=== PATIENT | female | born 1950 | race Caucasian/White ===

== ENCOUNTER 2017-04-12 10:25 | Inpatient (IN) ==
[2017-04-12] MEDS ORDERED: ALBUTEROL/IPRATROPIUM 2.5mg-0.5mg/3ml NEB AEROSOL ONE ×2 (10:37→12:02)
--- NOTE | 2017-04-12 10:37 | Emergency Department Report ---
SOB HPI - General Chief Complaint: Shortness of Breath/Dyspnea Stated Complaint: diff breathing/COPD Time Seen by Provider: 04/12/17 10:37 Source: patient, family Mode of arrival: ambulatory Limitations: no limitations - History of Present Illness Patient is a 67-year-old female presents to the emergency room for evaluation of shortness of air. Patient's had shortness of air for just over a month, did originally see her primary care doctor 03/05/17 was placed on prednisone and Levaquin at that time with minimal improvement. Patient normally uses 3 L of oxygen at night, has currently been using it around the clock. Patient does have a history of COPD/asthma, no history of CHF. Patient reports no weight gain, no increased swelling in her legs. Patient continuing to require 3 L of oxygen by nasal cannula, was told by her doctor that if she did not improve she should just go to the emergency department. Patient here for evaluation and treatment MD Complaint: shortness of breath Onset (ago): week(s) Context: occurred during exertion Severity: moderate Consistency/Duration: constant Relieving factors: oxygen, rest, bronchodilators Known history of: COPD, asthma Associated symptoms: cough Treatment prior to arrival: oxygen, bronchodilator - Related Data Home oxygen amount: 3 liters (at night, recently started using during the day) Home Medications Medication Instructions Recorded Confirmed Losartan/Hydrochlorothiazide 1 tab PO DAILY #0 tab 10/20/14 [Losartan-Hctz 100-25 mg Tab] Lovastatin 40 mg PO HS #0 tab 10/20/14 Metformin HCl 500 mg PO WB #0 tab 10/20/14 Metoprolol Tartrate 50 mg PO BIDWM #0 tab 10/20/14 Pioglitazone HCl/Metformin HCl 0.5 tab PO BID #0 tab 10/20/14 [Pioglitazone-Metformin 15-500] Theophylline Anhydrous 300 mg PO BID #0 10/20/14 (Theophylline) glipiZIDE [Glipizide] 1 tab PO DAILY #0 tab 10/20/14 Previous Rx's Medication Instructions Recorded Ciprofloxacin HCl 1 tab PO BID #10 tab 10/25/14 Furosemide 1 tab PO DAILY PRN #10 tab 10/25/14 Guaifenesin/Dextromethorphan 1 tab PO Q12HR 14 Days 10/25/14 [Mucinex Dm ER 600-30 mg Tablet] PredniSONE [Deltasone] 40 mg PO taper #13 tab 10/25/14 Allergies Allergy/AdvReac Type Severity Reaction Status Date / Time No Known Allergies Allergy Verified 04/12/17 10:46 Review of Systems Constitutional: Reports: weakness. Denies: fever, chills Eyes: Denies: eye discharge ENT: Denies: throat pain, dental pain Cardiovascular: Reports: dyspnea on exertion. Denies: chest pain, palpitations Respiratory: Reports: cough, wheezes Gastrointestinal: Denies: abdominal pain, nausea, vomiting Genitourinary: Denies: urgency, dysuria, frequency Musculoskeletal: Denies: back pain Neurological: Denies: headache Psychiatric: Denies: anxiety, depression Endocrine: Denies: fatigue, heat or cold intolerance PFSH Patient Stated Medical History Angina Yes Hypertension Yes Chronic Obstructive Pulmonary Yes Disease (COPD) Diabetes Mellitus Type 2 Yes Medical History Updates: Diabetes to 2. Hypertension. Coronary artery disease. Asthma. COPD Surgical History: . Hysterectomy Family History Updates: Cancer - Social History Smoking status: Never smoker Substance use type: does not use Alcohol intake frequency: does not drink Physical Exam - Limitations Limitations: no limitations - General General appearance: alert - Eye Eye exam: Present: PERRL - ENT ENT exam: Present: normal oropharynx - Neck Neck exam: Absent: trachea midline, tenderness - Chest Chest inspection: Present: normal inspection, symmetric chest wall rise - Respiratory Respiratory exam: Present: other (some bibasilar crackles). Absent: normal lung sounds bilaterally, respiratory distress, wheezes, stridor - Cardiovascular Cardiovascular exam: Present: regular rate, normal rhythm. Absent: bradycardia , tachycardia - Abdominal Exam Abdominal exam: Present: soft. Absent: distention, tenderness - Extremities Exam Extremities exam: Present: full ROM. Absent: tenderness - Back Exam Back exam: Present: full ROM - Skin Skin exam: Present: warm, dry - Neurological Exam Neurological exam: Present: alert, oriented X3 - Psychiatric Psychiatric exam: Present: normal affect, normal mood Course Vital Signs Respiratory Rate 20 04/12/17 10:35 Pulse Oximetry 95 04/12/17 10:35 Temperature 97.2 F 04/12/17 13:42 Pulse Rate 100 04/12/17 13:42 Respiratory Rate 16 04/12/17 13:50 Blood Pressure 143/74 H 04/12/17 13:42 Pulse Oximetry 91 06/26/17 13:42 Shortness of Breath/Dyspnea - [facility] Narrative Medical decision making narrative: Discussed with Dr. Jenkins, despite Solu-Medrol DuoNeb 2, patient continues to desaturate on ambulation into the 80s, patient is maintaining a low level 92% oxygen saturation on her normal 3 L. Will admit patient to the hospital he will evaluate - Differential Diagnosis Likely: acute exacerbation of chronic obstructive airways disease - Medical Records Attestation: I reviewed the patient's medical records. - Lab Data Attestation: I reviewed the patient's lab results. Result diagrams: 04/12/17 11:33 04/12/17 11:33 Lab Results 04/12/17 04/12/17 04/12/17 Range/Units 11:33 11:33 11:33 WBC 9.7 (4.5-11.0) T/MM3 RBC 4.23 (4.00-5.20) M/MM3 Hgb 12.3 (12-16) GM/DL Hct 39.6 (36-46) % MCV 93.6 (80-100) UM3 MCH 29.1 (26-34) UUG MCHC 31.1 (31-37) GM/DL RDW Std Deviation 49.4 (36.9-50.2) FL Plt Count 318 (130-400) T/MM3 MPV 10.4 (9.4-12.4) UM3 Immature Gran % (Auto) 0.3 (0.0-0.5) % Neut % (Auto) 75.7 H (33-66) % Lymph % (Auto) 12.8 L (23-45) % Garrard % (Auto) 8.6 (0-9.0) % Eos % (Auto) 2.2 (0-4) % Baso % (Auto) 0.4 (0-2) % Neut # 7.3 (1.8-7.7) T/MM3 Lymph # 1.2 (1-4.8) T/MM3 Garrard # 0.8 (0-0.8) T/MM3 Eos # 0.2 (0-0.5) T/MM3 Baso # 0.0 (0-0.2) T/MM3 Abs Immat Gran (auto) 0.03 (0.00-0.03) T/MM3 D-Dimer 208 (0-230) NG/ML Turbidity < 20 (0-20) Sodium 144 (134-144) MEQ/L Potassium 3.8 (3.6-5) MEQ/L Chloride 93 L (98-107) MEQ/L Carbon Dioxide 36 H (22-30) MEQ/L Anion Gap 15 (5-15) MEQ/L BUN 18.0 H (7-17) MG/DL Creatinine 0.6 L (0.7-1.2) MG/DL GFR Calculation 99 BUN/Creatinine Ratio 30 H (6-26) RATIO Glucose 188 H (65-110) MG/DL Calculated Osmolality 284 H (261-280) MOSM/KG Calcium 9.7 (8.4-10.2) MG/DL Total Bilirubin 0.40 (0.20-1.30) MG/DL Icterus Index < 2 (0-7) AST 16 (14-36) U/L ALT 37 (9-52) U/L Alkaline Phosphatase 58 (38-126) U/L Troponin I < 0.012 (0-0.12) ng/ml B-Natriuretic Peptide 95.9 (0-175) pg/mL Total Protein 7.3 (6.3-8.2) G/DL Albumin 4.3 (3.5-5.0) G/DL Globulin 3.0 (2.4-3.6) G/DL Albumin/Globulin Ratio 1.4 (1.1-2.2) RATIO Plasma Lactate 3.1 H (0.6-2.2) MMOL/L Procalcitonin NG/ML Specimen Hemolysis < 15 (0-25) // Range/Units 11:33 WBC (4.5-11.0) T/MM3 RBC (4.00-5.20) M/MM3 Hgb (12-16) GM/DL Hct (36-46) % MCV (80-100) UM3 MCH (26-34) UUG MCHC (31-37) GM/DL RDW Std Deviation (36.9-50.2) FL Plt Count (130-400) T/MM3 MPV (9.4-12.4) UM3 Immature Gran % (Auto) (0.0-0.5) % Neut % (Auto) (33-66) % Lymph % (Auto) (23-45) % Garrard % (Auto) (0-9.0) % Eos % (Auto) (0-4) % Baso % (Auto) (0-2) % Neut # (1.8-7.7) T/MM3 Lymph # (1-4.8) T/MM3 Garrard # (0-0.8) T/MM3 Eos # (0-0.5) T/MM3 Baso # (0-0.2) T/MM3 Abs Immat Gran (auto) (0.00-0.03) T/MM3 D-Dimer (0-230) NG/ML Turbidity (0-20) Sodium (134-144) MEQ/L Potassium (3.6-5) MEQ/L Chloride (98-107) MEQ/L Carbon Dioxide (22-30) MEQ/L Anion Gap (5-15) MEQ/L BUN (7-17) MG/DL Creatinine (0.7-1.2) MG/DL GFR Calculation BUN/Creatinine Ratio (6-26) RATIO Glucose (65-110) MG/DL Calculated Osmolality (261-280) MOSM/KG Calcium (8.4-10.2) MG/DL Total Bilirubin (0.20-1.30) MG/DL Icterus Index (0-7) AST (14-36) U/L ALT (9-52) U/L Alkaline Phosphatase (38-126) U/L Troponin I (0-0.12) ng/ml B-Natriuretic Peptide (0-175) pg/mL Total Protein (6.3-8.2) G/DL Albumin (3.5-5.0) G/DL Globulin (2.4-3.6) G/DL Albumin/Globulin Ratio (1.1-2.2) RATIO Plasma Lactate (0.6-2.2) MMOL/L Procalcitonin < 0.05 NG/ML Specimen Hemolysis (0-25) - Radiology Data Attestation: I reviewed the patient's radiology results. Chest x-ray: No acute cardiopulmonary findings Disposition Clinical Impression: Acute exacerbation of chronic obstructive airways disease Disposition: To [facility] [place] Acute Care Condition: Stable - Seen By: physician
[2017-04-12] MEDS ORDERED: METHYLPREDNISOLONE SOD SUCC 125mg/2ml INJECTION IM ONE (11:07)
[2017-04-12] MEDS: SALINE FLUSH 10ml SYRINGE IVF PRN ×2 (11:23→11:33)
--- NOTE | 2017-04-12 11:23 | XRay Report ---
Indication: cough shortness of breath PROCEDURE: XR chest 1V: Encounter: Initial Comparison: October 24, 2014 Findings: Emphysematous changes. Increased lung markings in the bases are likely chronic. No acute consolidative pneumonia, gross pleural effusion or pneumothorax. Heart size and mediastinal contours are stable. Pulmonary vascularity is within normal limits. Impression: No focal pneumonia. COPD. .
[2017-04-12] MEDS ORDERED: METHYLPREDNISOLONE SOD SUCC 125mg/2ml INJECTION IVP ONE (11:27)
[2017-04-12] MEDS ORDERED: LEVOFLOXACIN PB 750 MG/150 ML BAG IV SCH (12:00)
[2017-04-12] MEDS: NS 1,000 ML IV SCH (12:55)
--- NOTE | 2017-04-12 14:01 | History & Physical Report ---
<Leigha Polo - Last Filed: 04/12/17 15:56> History of Present Illness Date: 04/12/17 Chief complaint: difficulty breathing HPI: Started noticing some exertional SOA in late January - used oxygen temporarily during the day and after a short period of time she was able to take it off. She had been using oxygen only at night. Her dyspnea continued to worsen, but since mid-February she has been using 3L of oxygen [id number]. Unfortunately, she's continued to be limited in her ADLs/IADLs due to dyspnea, and now is terribly weak in general. She saw Dr. Coffman around 03/05/17 - he Rx Prednisone for 15 days and Levaquin x 10 days. Still, her SpO2 dropped with activity (walking 30 feet), even with 3L of oxygen in place. On 04/06/17 she was running in the 80s and on 04/07/17 she was running 70-80s. It took about 5-6 minutes for her oxygen sats to rise to 90%. She started noticing a little sternal burning with exertion. She has not had PND. Drove to [place] in mid-February (about a [address]). Occasional [id number] type of cough. Tends to have b/l swelling in her ankles but denies any worsening or unilateral edema. No fever, chills, congestion, sore throat, dizziness, abdominal pain, n/v/d/c, urinary changes, rashes. She does tend to bruise easily. She presented to [facility] [place] ED on 04/12/17. Labs showed normal CBC, normal chemistries; trop was negative; d-dimer was negative. EKG showed sinus. CXR was unremarkable for CHF or pneumonia. Saturations initially were 83% on 3L. She received DuoNeb and Solumedrol. O2 was increased to 4L. ED MD also gave Levaquin. She was admitted to observation status under the hospitalist service. Review of Systems All systems: reviewed and no additional remarkable complaints except as stated - Constitutional Constitutional: Present: headache(s) (resolved), weakness. Absent: fever(s), night sweats - EENMT Eyes: Absent: change in vision Nose: Absent: allergies Mouth/Throat: Absent: sore throat, changes in swallowing, painful swallowing - Cardiovascular Cardiovascular: Present: chest pain, edema. Absent: syncope, orthopnea - Respiratory Respiratory: Present: as per HPI - Gastrointestinal Gastrointestinal: Absent: abdominal pain, change in bowel habits, constipation, diarrhea, nausea, vomiting - Musculoskeletal Musculoskeletal: Present: muscle weakness - Neurological Neurological: Absent: confusion, frequent falls, headache(s) - Psychiatric Psychiatric: Present: anxiety (occasionally) - Hematologic/Lymphatic Hematologic/Lymphatic: Present: easy bruising (with ASA) - Allergic/Immunologic Allergic/Immunologic: Absent: seasonal rhinorrhea [facility] Medical History Updates: Diabetes type 2. Hypertension. Asthma. Severe COPD. Morbid obesity BMI 42.9 Surgical History: Tonsillectomy. Hysterectomy. Right leg ORIF 1976 Family History: Mother of kidney cancer, age 80 Father of a heart attack, age 60 No family history of DVT/PE or bleeding disorders. - Social History Smoking status: Former smoker (2-3 ppd since age 13) Quit date: 10/30/00 Substance use type: does not use Alcohol intake frequency: does not drink Household members: spouse Current occupational status: retired Current residence: Apartment/Private Home Medications Home Medications Medication Instructions Recorded Confirmed Type Losartan/Hydrochlorothiazide 1 tab PO DAILY #0 tab 10/20/14 04/12/17 History [Losartan-Hctz 100-25 mg Tab] Lovastatin 40 mg PO DAILY #0 tab 10/20/14 04/12/17 History Metformin HCl 1.5 tab PO BID #0 tab 10/20/14 04/12/17 History Metoprolol Tartrate 50 mg PO BIDWM #0 tab 10/20/14 04/12/17 History glipiZIDE [Glipizide] 1 tab PO DAILY #0 tab 10/20/14 04/12/17 History Albuterol Sulfate [Proair 90 mcg INH QID PRN 04/12/17 04/12/17 History Respiclick] Aspirin [Bianca Chewable Aspirin] 81 mg PO DAILY 04/12/17 04/12/17 History Calcium 600 + D [Caltrate + D] 1 tab PO DAILY 04/12/17 04/12/17 History Cinnamon Bark [Cinnamon] 500 mg PO DAILY 04/12/17 04/12/17 History Fluticasone/Salmeterol 250/50 1 puff INH BID 04/12/17 04/12/17 History [Advair Diskus] Multivitamin [One Daily 1 each PO DAILY 04/12/17 04/12/17 History Multivitamin] Pioglitazone HCl [Pioglitazone HCl] 0.5 tab PO BID 04/12/17 04/12/17 History Psyllium [Metamucil] 1 packet PO DAILY PRN 04/12/17 04/12/17 History Theophylline Anhydrous 300 mg PO DAILY 04/12/17 04/12/17 History Tiotropium Handihaler [Spiriva] 1 each INH DAILY 04/12/17 04/12/17 History Allergies Allergy/AdvReac Type Severity Reaction Status Date / Time No Known Allergies Allergy Verified 04/12/17 10:46 Exam Vital Signs: Temp Pulse Resp BP Pulse Ox 97.2 F 100 16 143/74 H 91 04/12/17 13:42 04/12/17 13:42 04/12/17 13:50 04/12/17 13:42 04/12/17 13:42 Height: 1.63 m Weight: 107.9 kg - Constitutional Present: no acute distress, well nourished, well developed, morbidly obese - Routine HEENT Exam Eye: Present: PERRL. Absent: conjunctival icterus, scleral injection ENT: Present: mucous membranes dry - Routine Neck Exam Present: supple. Absent: lymphadenopathy - Routine Respiratory Exam Present: decreased breath sounds, wheezes - Routine Cardiovascular Exam Present: RRR, S1, S2 - Routine Abdominal Exam Present: soft, normoactive bowel sounds, non distended, non tender - Routine Extremities Exam Present: edema (1+ b/l lower ext.), pulses intact - Routine Neurological Exam Present: alert, oriented X3, CN II-XII intact - Routine Psychiatric Exam Present: normal affect, normal thought process Results - Labs CBC & Chem 7: 04/12/17 11:33 04/12/17 11:33 - ECG Data Tracing #1 ECG initial impression date: 04/12/17 ECG normal with no acute: arrhythmias, ischemia, conduction abnormalities, chamber hypertrophy - Imaging and Cardiology CT scan - abdomen Status: image reviewed by me Additional comments: No acute CHF or infiltrates. No cardiomegaly. Assessment and Plan (1) Acute on chronic respiratory failure with hypoxemia Current visit: Yes Status: Acute (2) Atypical chest pain Current visit: Yes Status: Acute (3) Acute exacerbation of chronic obstructive airways disease Current visit: Yes Status: Acute DVT Prophylaxis: Lovenox GI Prophylaxis: Protonix Resuscitation Status: Full Code Assessment and Plan: Admit, observation status, under the hospitalist service. COPD exacerbation; acute on chronic hypoxia -Solu-Medrol IV in ED - start Prednisone 60 mg tomorrow am -Levaquin 750 mg daily -High-resolution CT chest ordered -D-dimer normal -DuoNeb QID; acapella -resume home meds once they are reconciled Atypical Chest Pain -start PPI -echocardiogram -tele -trop was negative -lipids checked 01/27/17: Chol 150; trig 134, HDL 47, LDL 76, VLDL 27. DM2 -last A1c was 6.1% on 01/27/17 -monitor sugars - SSI if needed -continue oral agents (once reconciled) Weight gain/weakness -check TSH Pt was seen and discussed with Dr. Jenkins. Hospital Course Summary Disclaimer: The visit summary below is not to be considered part of the above Progress Note. Hospital Course: 04/12/17 16:06 Admit, observation status, under the hospitalist service. COPD exacerbation; acute on chronic hypoxia -Solu-Medrol IV in ED - start Prednisone 60 mg tomorrow am -Levaquin 750 mg daily -High-resolution CT chest ordered -D-dimer normal -DuoNeb QID; acapella -resume home meds once they are reconciled Atypical Chest Pain -start PPI -echocardiogram -tele -trop was negative -lipids checked 01/27/17: Chol 150; trig 134, HDL 47, LDL 76, VLDL 27. DM2 -last A1c was 6.1% on 01/27/17 -monitor sugars - SSI if needed -continue oral agents (once reconciled) Weight gain/weakness -check TSH <Gianni Jenkins - Last Filed: 04/12/17 18:40> History of Present Illness Date: 04/12/17 [facility] Patient Stated Medical History Angina Yes Hypertension Yes Chronic Obstructive Pulmonary Yes Disease (COPD) Pneumonia Yes Diabetes Mellitus Type 2 Yes Exam Vital Signs: Temp Pulse Resp BP Pulse Ox 97.6 F 101 H 22 150/74 H 92 04/12/17 16:27 04/12/17 16:27 04/12/17 16:45 04/12/17 16:27 04/12/17 16:45 Height: 5 ft 4 in Weight: 107.9 kg Results - Labs CBC & Chem 7: 04/12/17 11:33 04/12/17 11:33 Assessment and Plan (1) Acute exacerbation of chronic obstructive airways disease Current visit: Yes Status: Acute (2) Acute on chronic respiratory failure with hypoxemia Current visit: Yes Status: Acute (3) Atypical chest pain Current visit: Yes Status: Acute Assessment and Plan: Pt seen and examined with Leigha, agree with above plan of care. Pt presents with acute SOB and desaturation, with increased O2 needs recently ( over a period of months) which is very concerning. She denies any H.O cardiac problems or SC, but reports having burning chest pain recently. Initial TnI is negative. Pt was taking a combination of Metformin and Pioglitazone as outpatient for her DM. She states a pill she gets for her lungs makes her nauseated. Pt is not sure how long she has been on Pioglitazone. CT chest (HRCT) "...................................................................... Comparison: Chest x-ray dated April 12, [address] chest dated October 20, 2014 Technique: Axial CT images were performed through the chest without intravenous contrast. Coronal and sagittal two-dimensional reformats. Automated Exposure Control and Iterative Reconstruction dose reducing techniques were utilized. Findings: Mild to moderate edema. There is significant air trapping consistent with small airways disease. Prior consolidation in the right middle lobe is no longer identified. There is chronic pleural abnormality in the right lower lobe with areas of scarring and rounded atelectasis. This is stable from the prior chest CT. There is also linear scarring in the left lower lobe. No acute focal pneumonia. No pleural effusion or pneumothorax. No worrisome pulmonary nodules or masses. No axillary adenopathy by CT size criteria. Small superior paratracheal nodes are unchanged. Slight interval increase in size of a couple AP window nodes on axial image #23 measuring up to 1.1 cm in short axis diameter. Heart size is stable. No pericardial effusion. Three vessel coronary artery disease. The upper abdomen shows no acute findings. No significant change in the pattern of air trapping on the prone phase imaging. Impression: 1. No acute disease process seen in the chest. Evidence of COPD and chronic small airways disease. 2. 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 3. Borderline enlarged mediastinal lymph nodes could be reactive. ......................................................................" PE VSS as above Pt is obese NC/AT Neck is short and thick. Chest - diminished breath sounds bilaterally with bilateral wheezing. Abd - distended - BS + Ext - + edema. Plan - Continue plan as above plus - - Stop Pioglitazone. CT chest mentions "Mild to moderate edema". I placed it on hold on the med-rec as it does not allow me to stop it - If this is the culprit may take several weeks for her to get rid of the edema caused by this medication - Will recheck troponin to complete 3 sets - add NT patch, and consider a cardiology eval in the AM; would benefit from pre-d/c risk stratification for CAD. Pt has "Tripple vessel CAD" per HRCT - If chronic pulmonary embolism is a concern (If echo shows increased pulmonary pressures) a V/Q scan would be the test of choice to check for chronic PE. A normal BNP is reassuring but BNP is much lower in obese patients. - Will stop Theophylline and check a level. Pt reports nausea with this medication. - Due to severity of bronchospasm reported by the ED MD, will continue IV steroids for now (Edema of the bowel wall - if present - can slow PO absorption of medications) Hospital Course Summary Disclaimer: The visit summary below is not to be considered part of the above Progress Note.
[2017-04-12 15:13] VITALS: BMI 40.8
--- NOTE | 2017-04-12 15:57 | CT Scan Report ---
Indication: dyspnea PROCEDURE: CT chest high res: Encounter: Initial Comparison: Chest x-ray dated April 12, [address] chest dated October 20, 2014 Technique: Axial CT images were performed through the chest without intravenous contrast. Coronal and sagittal two-dimensional reformats. Automated Exposure Control and Iterative Reconstruction dose reducing techniques were utilized. Findings: Mild to moderate edema. There is significant air trapping consistent with small airways disease. Prior consolidation in the right middle lobe is no longer identified. There is chronic pleural abnormality in the right lower lobe with areas of scarring and rounded atelectasis. This is stable from the prior chest CT. There is also linear scarring in the left lower lobe. No acute focal pneumonia. No pleural effusion or pneumothorax. No worrisome pulmonary nodules or masses. No axillary adenopathy by CT size criteria. Small superior paratracheal nodes are unchanged. Slight interval increase in size of a couple AP window nodes on axial image #23 measuring up to 1.1 cm in short axis diameter. Heart size is stable. No pericardial effusion. Three vessel coronary artery disease. The upper abdomen shows no acute findings. No significant change in the pattern of air trapping on the prone phase imaging. Impression: 1. No acute disease process seen in the chest. Evidence of COPD and chronic small airways disease. 2. 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 3. Borderline enlarged mediastinal lymph nodes could be reactive. .
[2017-04-12] MEDS: ALBUTEROL/IPRATROPIUM 2.5mg-0.5mg/3ml NEB AEROSOL SCH ×2 (16:53→20:34)
[2017-04-12] MEDS: ENOXAPARIN 40 MG/0.4 ML INJECTION SQ SCH (16:56)
[2017-04-12] MEDS: INSULIN ASPART 100unit/ml INJECTION SQ PRN ×2 (16:56→21:39)
[2017-04-12] MEDS ORDERED: PSYLLIUM PACKET PO PRN (17:59)
[2017-04-12] MEDS ORDERED: NITROGLYCERIN 0.4 MG SUBLINGUAL TABLET SL PRN (18:04)
[2017-04-12] MEDS: METHYLPREDNISOLONE SOD SUCC 40mg/ml INJECTION IVP SCH (19:53)
[2017-04-12] MEDS: ASPIRIN 81 MG CHEWABLE TABLET PO SCH (19:53)
[2017-04-12] MEDS: METFORMIN 500 MG TABLET PO SCH (19:54)
[2017-04-12] MEDS: LOVASTATIN 40 MG TABLET PO SCH (21:39)
[2017-04-13] MEDS: NS 1,000 ML IV SCH ×3 (00:07→11:02)
[2017-04-13] MEDS: METFORMIN 500 MG TABLET PO SCH ×3 (00:07→17:47)
[2017-04-13] MEDS: METHYLPREDNISOLONE SOD SUCC 40mg/ml INJECTION IVP SCH ×2 (01:53→08:20)
[2017-04-13] MEDS: INSULIN ASPART 100unit/ml INJECTION SQ PRN ×4 (06:12→17:47)
[2017-04-13] MEDS: LEVOFLOXACIN 750 MG TABLET PO SCH (06:12)
[2017-04-13] MEDS: PANTOPRAZOLE 20 MG TABLET PO SCH (06:12)
[2017-04-13] MEDS: ALBUTEROL/IPRATROPIUM 2.5mg-0.5mg/3ml NEB AEROSOL SCH ×4 (07:45→19:27)
[2017-04-13] MEDS ORDERED: PredniSONE 20 MG TABLET PO SCH (08:00)
[2017-04-13] MEDS: ASPIRIN 81 MG CHEWABLE TABLET PO SCH (08:20)
[2017-04-13] MEDS: SALINE FLUSH 10ml SYRINGE IVF PRN (08:20)
[2017-04-13] MEDS: NITROGLYCERIN 0.2 MG/HR PATCH TD SCH (08:21)
[2017-04-13] MEDS: MULTI-VITAMIN PLAIN TABLET PO SCH (08:21)
[2017-04-13] MEDS: GlipiZIDE 5 MG TABLET PO SCH ×2 (08:22→17:47)
[2017-04-13] MEDS: ENOXAPARIN 40 MG/0.4 ML INJECTION SQ SCH (09:12)
[2017-04-13] MEDS: TIOTROPIUM 18mcg/cap HANDIHALER ORAL INH SCH ×2 (09:43→09:44)
--- NOTE | 2017-04-13 12:55 | Progress Note ---
<Leigha Polo - Last Filed: 04/13/17 14:03> Subjective: Cathy was seen during lunch. She states that her breathing is about the same today. She still occasionally desaturates on 3L of oxygen. When she got up to walk the short distance to the bathroom, she developed chest burning again, that has recently started to occur with exertion and shortness of breath. It spontaneously subsided after 3-4 minutes. She denies any abdominal pain or GI complaints such as n/v. Leg swelling looked better when she woke up but now that she's been awake and her legs in dependent position, they are starting to swell up again. I clarified her theophylline intolerance - she stated she developed nausea with doxycycline (not theophylline) Objective Vital signs: Temperature 96.2 F L 04/13/17 08:00 Pulse Rate 97 04/13/17 08:00 Respiratory Rate 16 04/13/17 11:37 Blood Pressure 143/81 H 04/13/17 08:00 Pulse Oximetry 90 04/13/17 11:37 Weight: 109.8 kg - Constitutional Present: no acute distress, well nourished, well developed, obese - Routine HEENT Exam Eye: Absent: conjunctival icterus ENT: Present: mucous membranes moist, oropharynx clear - Routine Respiratory Exam Present: decreased breath sounds - Routine Cardiovascular Exam Present: RRR, S1, S2 - Routine Abdominal Exam Present: soft, normoactive bowel sounds, non tender - Routine Extremities Exam Present: edema (1+ b/l) - Routine Back/Spine/Pelvis Exam Back/Spine: Absent: vertebral tenderness - Routine Musculoskeletal Exam Musculoskeletal: Present: moving extremities well - Routine Skin Exam Present: intact, dry, warm - Routine Neurological Exam Present: alert, oriented X3 - Routine Psychiatric Exam Present: normal affect, normal thought process Results - Labs CBC & Chem 7: 04/13/17 04:39 04/13/17 04:39 Assessment and Plan (1) Acute exacerbation of chronic obstructive airways disease Current visit: Yes Status: Acute (2) Pulmonary edema Current visit: Yes Status: Acute (3) Acute on chronic respiratory failure with hypoxemia Current visit: Yes Status: Acute (4) Atypical chest pain Current visit: Yes Status: Acute (5) Lactic acidosis Current visit: Yes Status: Resolved Assessment and Plan: COPD exacerbation with acute on chronic respiratory failure -wheezing is less and she has better air movement -will stop IV steroids and start Prednisone tomorrow -continue supportive care -still needing 3L of oxygen -suspect patient's lactic acidosis of 3.1 on admission was secondary to hypoxia rather severe sepsis. Lactate decreased to 1.5 on recheck. No source of infection identified, though she is being treated for COPD exacerbation. SIRS criteria include HR >90 and RR >20. Will check UA for completeness. -change status to inpatient d/t ongoing respiratory failure, lactic acidosis, pulmonary edema. LOS will exceed 2 midnights. Pulmonary edema with atypical chest pain (stable angina?) -again developed chest burning with exertion this morning -CT chest shows mild-moderate edema and triple vessel CAD -echo done, report pending -troponin negative -will consult Dr. Blevins for further recommendations -she is on a statin, ASA, BB, and ARB DM2 with hyperglycemia -BG elevated with steroids and cessation of Pioglitazone, which was held b/c of edema -could possibly increase metformin to 1000 mg BID; continue Glipizide -will increase SSI to high-dose corrective regimen TSH was normal. Sepsis Assessment - Evaluation Sepsis screening result: No Definite Risk Hospital Course Summary Disclaimer: The visit summary below is not to be considered part of the above Progress Note. Hospital Course: 04/12/17 Admit, observation status, under the hospitalist service. COPD exacerbation; acute on chronic hypoxia -Solu-Medrol IV -Levaquin 750 mg daily -High-resolution CT chest ordered -D-dimer normal -DuoNeb QID; acapella -resume home meds once they are reconciled -stop Theophylline and check a level Atypical Chest Pain -start PPI -echocardiogram -tele -trop was negative -lipids checked 01/27/17: Chol 150; trig 134, HDL 47, LDL 76, VLDL 27. -recheck troponin to complete 3 sets - add NT patch, and consider a cardiology eval in the AM; would benefit from pre-d/c risk stratification for CAD. Pt has "Tripple vessel CAD" per HRCT DM2 -last A1c was 6.1% on 01/27/17 -monitor sugars - SSI if needed -continue oral agents (once reconciled) -Stop Pioglitazone. CT chest mentions "Mild to moderate edema". I placed it on hold on the med-rec as it does not allow me to stop it - If this is the culprit may take several weeks for her to get rid of the edema caused by this medication Weight gain/weakness -check TSH - normal. 04/13/17 COPD exacerbation with acute on chronic respiratory failure -wheezing is less and she has better air movement -will stop IV steroids and start Prednisone tomorrow -continue supportive care -still needing 3L of oxygen -suspect patient's lactic acidosis of 3.1 on admission was secondary to hypoxia rather severe sepsis. Lactate decreased to 1.5 on recheck. No source of infection identified, though she is being treated for COPD exacerbation. SIRS criteria include HR >90 and RR >20. Will check UA for completeness. -change status to inpatient d/t ongoing respiratory failure, lactic acidosis, pulmonary edema. LOS will exceed 2 midnights. Pulmonary edema with atypical chest pain (stable angina?) -again developed chest burning with exertion this morning -CT chest shows mild-moderate edema and triple vessel CAD -echo done, report pending -troponin negative -will consult Dr. Blevins for further recommendations -she is on a statin, ASA, BB, and ARB DM2 with hyperglycemia -BG elevated with steroids and cessation of Pioglitazone, which was held b/c of edema -could possibly increase metformin to 1000 mg BID; continue Glipizide -will increase SSI to high-dose corrective regimen <Munir Orourke D - Last Filed: 04/13/17 18:59> Objective Vital signs: Temperature 98.3 F 04/13/17 15:34 Pulse Rate 88 04/13/17 15:34 Respiratory Rate 18 04/13/17 15:34 Blood Pressure 152/71 H 04/13/17 15:34 Pulse Oximetry 88 L 04/13/17 15:34 Oxygen Delivery Method Nasal Cannula Oxygen Flow Rate 3 Results - Labs CBC & Chem 7: 04/13/17 04:39 04/13/17 04:39 Assessment and Plan (1) Acute exacerbation of chronic obstructive airways disease Current visit: Yes Status: Acute (2) Acute on chronic respiratory failure with hypoxemia Current visit: Yes Status: Acute (3) Atypical chest pain Current visit: Yes Status: Acute (4) Pulmonary edema Current visit: Yes Status: Acute (5) Lactic acidosis Current visit: Yes Status: Resolved (6) Type II diabetes mellitus Current visit: Yes Status: Chronic (7) HTN (hypertension) Current visit: Yes Status: Chronic (8) Hyperlipemia Current visit: Yes Status: Chronic (9) Morbid (severe) obesity due to excess calories Current visit: Yes Status: Chronic DVT Prophylaxis: Lovenox Resuscitation Status: Full Code Assessment and Plan: Have independently interviewed and examined pt. Chart reviewed. Case discussed with CM, Dr Blevins, and my ASSISTANT DISTRIBUTION MANAGER. Care plan developed with my supervision; agree with above. Doing okay today-still very SOA. Was able to mobilize green sputum. No pain with breathing. Denies nausea or ab pain. NO f/c. Lungs: decreased bilaterally, very little air movement. No wheezing, but not hearing significant air movement. Breaths comfortably on RA at rest. CV: regular Ab: soft n/nd +BS EXT: trace edema. MSE: awake alert appropriate. Converses well. Plan: Continue levofloxacin for pulmonary coverage, change to oral Prednisone. Continue neb treatments. Add MucinexLA and Claritin. Continue Acapella. PT/OT to see tomorrow for pulmonary debility. Dr Blevins recommend outpatient stress testing wound pulmonary status stabilized-does not feel cardiac disease playing a role in pt's current dyspnea. Will stop IVF as pt taking po well so as not to cause increased fluid retention due to the saline load of IVF and steroids. Montior lab. Hospital Course Summary Disclaimer: The visit summary below is not to be considered part of the above Progress Note.
--- NOTE | 2017-04-13 14:59 | Cardiology Consult Note ---
History of Present Illness Consult date: 04/13/17 <Salima Juarez 04/13/17 15:21> Requesting physician: Munir Orourke <LarrySalima menendez 04/13/17 15:21> Consult reason: chest pain (pulmonary edema and exertional chest pain) < Salima Juarez - 04/13/17 15:21> Chief complaint: exertional chest pain <Salima Juarez 04/14/17 15:05> History of present illness: Cathy is a 67 year old female who presented to the ED for evaluation of shortness of air. Patient's had shortness of air for just over a month, did originally see her primary care doctor 03/05/17 was placed on prednisone and Levaquin at that time with minimal improvement. Patient normally uses 3 L of oxygen at night, has currently been using it around the clock. Patient does have a history of COPD/asthma, no history of CHF. Patient reports no weight gain, no increased swelling in her legs. Patient continuing to require 3 L of oxygen by nasal cannula, was told by her doctor that if she did not improve she should just go to the emergency department. She was admitted to observation status under the hospitalist service. Dr Blevins is consulted for pulmonary edema and exertional chest pain. <Salima Juarez 04/14/17 15:05> Review of Systems - Constitutional Constitutional: Present: headache(s) (resolved), weakness. Absent: fever(s), night sweats <Salima Juarez 04/13/17 15:21> - EENMT Eyes: Absent: change in vision <Salima Juarez 04/13/17 15:21> Nose: Absent: allergies <Salima Juarez 04/13/17 15:21> Mouth/Throat: Absent: sore throat, changes in swallowing, painful swallowing < Salima Juarez 04/13/17 15:21> - Cardiovascular Cardiovascular: Present: chest pain, edema. Absent: syncope, orthopnea < Salima Juarez 04/13/17 15:21> - Respiratory Respiratory: Present: as per HPI <Salima Juarez 04/13/17 15:21> - Gastrointestinal Gastrointestinal: Absent: abdominal pain, change in bowel habits, constipation, diarrhea, nausea, vomiting <Salima Juarez 04/13/17 15:21> - Musculoskeletal Musculoskeletal: Present: muscle weakness <LarrySalima Cruz 04/13/17 15:21> - Neurological Neurological: Absent: confusion, frequent falls, headache(s) <LarrySalima Cruz 04/13/17 15:21> - Psychiatric Psychiatric: Present: anxiety (occasionally) <LarrySalima Cruz 04/13/17 15:21> - Hematologic/Lymphatic Hematologic/Lymphatic: Present: easy bruising (with ASA) <LarrySalima Cruz 15:21> - Allergic/Immunologic Allergic/Immunologic: Absent: seasonal rhinorrhea <LarrySalima Nancy 04/13/17 15:21> [facility] Patient Stated Medical History Angina Yes Hypertension Yes Chronic Obstructive Pulmonary Yes Disease (COPD) Pneumonia Yes Diabetes Mellitus Type 2 Yes <GenAyo 04/15/17 17:21> Patient Stated Medical History Angina Yes Hypertension Yes Chronic Obstructive Pulmonary Yes Disease (COPD) Pneumonia Yes Diabetes Mellitus Type 2 Yes <LarrySalima Cruz 04/13/17 15:21> Medical History Updates: Diabetes type 2. Hypertension. Asthma. Severe COPD. Morbid obesity BMI 42.9 <Larry,Salima Cruz 04/13/17 15:21> Surgical History: Tonsillectomy. Hysterectomy. Right leg ORIF 1976 <Larry Salima Nancy 04/13/17 15:21> Family History: Mother of kidney cancer, age 80 Father of a heart attack, age 60 <LarrySalima menendez Nancy 04/14/17 15:05> - Social History Smoking status: Former smoker <LarrySalima Nancy 04/13/17 15:21> Substance use type: does not use <LarrySalima menendez Nancy 04/14/17 15:05> Alcohol intake frequency: does not drink <Salima Juarez Nancy 04/14/17 15:05> Household members: spouse <Salima Juarez Nancy 04/14/17 15:05> Current occupational status: retired <Salima Juarez Nancy 04/14/17 15:05> Current residence: Apartment/Private Home <Salima Juarez 04/14/17 15:05> Medications Home Medications Medication Instructions Recorded Confirmed Type Losartan/Hydrochlorothiazide 1 tab PO DAILY #0 tab 10/20/14 04/12/17 History [Losartan-Hctz 100-25 mg Tab] Lovastatin 40 mg PO DAILY #0 tab 10/20/14 04/12/17 History Metformin HCl 1.5 tab PO BID #0 tab 10/20/14 04/12/17 History Metoprolol Tartrate 50 mg PO BIDWM #0 tab 10/20/14 04/12/17 History glipiZIDE [Glipizide] 1 tab PO DAILY #0 tab 10/20/14 04/12/17 History Albuterol Sulfate [Proair 90 mcg INH QID PRN 04/12/17 04/12/17 History Respiclick] Aspirin [Bianca Chewable Aspirin] 81 mg PO DAILY 04/12/17 04/12/17 History Calcium 600 + D [Caltrate + D] 1 tab PO DAILY 04/12/17 04/12/17 History Cinnamon Bark [Cinnamon] 500 mg PO DAILY 04/12/17 04/12/17 History Fluticasone/Salmeterol 250/50 1 puff INH BID 04/12/17 04/12/17 History [Advair Diskus] Multivitamin [One Daily 1 each PO DAILY 04/12/17 04/12/17 History Multivitamin] Pioglitazone HCl [Pioglitazone HCl] 0.5 tab PO BID 04/12/17 04/12/17 History Psyllium [Metamucil] 1 packet PO DAILY PRN 04/12/17 04/12/17 History Theophylline Anhydrous 300 mg PO DAILY 04/12/17 04/12/17 History Tiotropium Handihaler [Spiriva] 1 each INH DAILY 04/12/17 04/12/17 History <Ayo Blevins - 04/15/17 17:21> Allergies Allergy/AdvReac Type Severity Reaction Status Date / Time No Known Allergies Allergy Verified 04/12/17 10:46 <Ayo Blevins - 04/15/17 17:21> Exam Vital signs: Temperature 97.6 F 04/15/17 15:13 Pulse Rate 83 04/15/17 16:01 Respiratory Rate 18 04/15/17 15:13 Blood Pressure 147/60 H 04/15/17 15:13 Pulse Oximetry 91 04/15/17 15:13 Oxygen Delivery Method Nasal Cannula Oxygen Flow Rate 3 <Ayo Blevins - 04/15/17 17:21> Temperature 96.2 F L 04/13/17 08:00 Pulse Rate 97 04/13/17 08:00 Respiratory Rate 16 04/13/17 11:37 Blood Pressure 143/81 H 04/13/17 08:00 Pulse Oximetry 90 04/13/17 11:37 <Salima Juarez 04/13/17 15:21> - Constitutional no acute distress, obese, cooperative <Salima Juarez [facility] 04/14/17 15:05> - Routine HEENT Exam ENT: Present: mucous membranes moist <Salima Juarez [facility] 04/14/17 15:05> - Routine Neck Exam Absent: JVD, carotid bruit <Salima Juarez [facility] 04/14/17 15:05> - Routine Chest/Breast/Axilla Exam Chest wall: Absent: tenderness <Salima Juarez [facility] 04/14/17 15:05> - Routine Respiratory Exam Present: diminished air movement. Absent: dyspnea, rales, wheezes <Salima Juarez [facility] 04/14/17 15:05> - Routine Cardiovascular Exam Present: RRR, S1, S2, no murmur <Salima Juarez [facility] 04/14/17 15:05> - Routine Abdominal Exam Present: soft, normoactive bowel sounds <Salima Juarez [facility] 04/14/17 15:05> - Routine Extremities Exam Present: edema <Salima Juarez [facility] 04/14/17 15:05> - Routine Skin Exam Present: intact <Salima Juarez [facility] 04/14/17 15:05> - Routine Neurological Exam Present: alert, oriented X3 <aSlima Juarez [facility] 04/14/17 15:05> - Routine Psychiatric Exam Present: normal affect, normal thought process <LarrySalima Cruz 04/14/17 15: 05> Results 04/15/17 05:37 04/15/17 05:37 <Ayo Blevins 04/15/17 17:21> CBC 04/15/17 Range/Units 05:37 WBC 11.6 H (4.5-11.0) T/MM3 RBC 3.98 L (4.00-5.20) M/MM3 Hgb 11.4 L (12-16) GM/DL Hct 37.6 (36-46) % Plt Count 310 (130-400) T/MM3 Neut # 8.2 H (1.8-7.7) T/MM3 Lymph # 2.3 (1-4.8) T/MM3 [place] # 1.0 H (0-0.8) T/MM3 Eos # 0.0 (0-0.5) T/MM3 Baso # 0.0 (0-0.2) T/MM3 Comprehensive Metabolic Panel 04/15/17 Range/Units 05:37 Sodium 147 H (134-144) MEQ/L Potassium 4.0 (3.6-5) MEQ/L Chloride 97 L (98-107) MEQ/L Carbon Dioxide 39 H (22-30) MEQ/L BUN 22.0 H (7-17) MG/DL Creatinine 0.7 (0.7-1.2) MG/DL Glucose 96 (65-110) MG/DL Calcium 9.7 (8.4-10.2) MG/DL Intake and Output 04/15/17 04/15/17 04/15/17 06:59 14:59 22:59 Intake Total 200 / 200 898 / 898 Output Total 1000 / 1000 1600 / 1600 Balance -800 / -800 -702 / -702 Intake: Oral 200 / 200 898 / 898 Output: Urine 1000 / 1000 1600 / 1600 Other: Weight 111.1 kg Patient Weight 04/16/17 06:59 Weight 111.1 kg <Ayo Blevins - 04/15/17 17:21> Intake and Output 04/12/17 04/13/17 04/13/17 22:59 06:59 14:59 Intake Total 400 / 1400 Output Total 150 / 150 Balance 250 / 1250 Intake: Oral 400 / 400 Output: Urine 150 / 150 Other: # Voids 1 Weight 242 lb 1.081 oz Patient Weight 04/14/17 06:59 Weight 242 lb 1.081 oz <Salima Juarez - 04/13/17 15:21> - Imaging and Cardiology Echo: pending <Salima Juarez - 04/13/17 16:30> EKG results: image reviewed <Salima Juarez - 04/13/17 16:30> Imaging & Cardiology Narrative: Date of Exam: 04/12/17 Ordering Provider: Isaiah Francois MD Type of Exam(s): XR chest 1V Reason for Exam(s): cough shortness of Indication: cough shortness of breath PROCEDURE: XR chest 1V: Encounter: Initial Comparison: October 24, 2014 Findings: Emphysematous changes. Increased lung markings in the bases are likely chronic. No acute consolidative pneumonia, gross pleural effusion or pneumothorax. Heart size and mediastinal contours are stable. Pulmonary vascularity is within normal limits. Impression: No focal pneumonia. COPD. Date of Exam: 04/12/17 Ordering Provider: Leigha Polo APRN Type of Exam(s): CT chest high res Reason for Exam(s): dyspnea Indication: dyspnea PROCEDURE: CT chest high res: Encounter: Initial Comparison: Chest x-ray dated April 12, [address] chest dated October 20, 2014 Technique: Axial CT images were performed through the chest without intravenous contrast. Coronal and sagittal two-dimensional reformats. Automated Exposure Control and Iterative Reconstruction dose reducing techniques were utilized. Findings: Mild to moderate edema. There is significant air trapping consistent with small airways disease. Prior consolidation in the right middle lobe is no longer identified. There is chronic pleural abnormality in the right lower lobe with areas of scarring and rounded atelectasis. This is stable from the prior chest CT. There is also linear scarring in the left lower lobe. No acute focal pneumonia. No pleural effusion or pneumothorax. No worrisome pulmonary nodules or masses. No axillary adenopathy by CT size criteria. Small superior paratracheal nodes are unchanged. Slight interval increase in size of a couple AP window nodes on axial image #23 measuring up to 1.1 cm in short axis diameter. Heart size is stable. No pericardial effusion. Three vessel coronary artery disease. The upper abdomen shows no acute findings. No significant change in the pattern of air trapping on the prone phase imaging. Impression: 1. No acute disease process seen in the chest. Evidence of COPD and chronic small airways disease. 2. 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 3. Borderline enlarged mediastinal lymph nodes could be reactive. 04/13/17 16:29 04/13/17 16:29 <LarrySalima Nancy - 04/13/17 16:30> EKG interpretations - Dysrhythmias Sinus rhythms and dysrhythmias: sinus rhythm <LarrySalima Cruz - 04/13/17 16:30> Assessment and Plan (1) Acute exacerbation of chronic obstructive airways disease Current visit: Yes Status: Acute (2) Acute on chronic respiratory failure with hypoxemia Current visit: Yes Status: Acute (3) Atypical chest pain Current visit: Yes Status: Resolved <Ayo Blevins - 04/15/17 17:21> (1) Acute exacerbation of chronic obstructive airways disease Current visit: Yes Status: Acute per attending (2) Acute on chronic respiratory failure with hypoxemia Current visit: Yes Status: Acute per attending (3) Atypical chest pain Current visit: Yes Status: Resolved Will need outpatient stress test to be done after current illness is resolved. No indication for further inpatient workup <Salima Juarez - 04/14/17 14:58> - Attestation Attestation Narrative: 04/15/17 17:21 Recommendation After examining the patient I agree with the above assessment. I am involved in the formulation of the patient's plan of care. <Ayo Blevins - 04/15/17 17:21> Hospital Course Summary Disclaimer: The visit summary below is not to be considered part of the above Progress Note. <Ayo Blevins - 04/15/17 17:21> The visit summary below is not to be considered part of the above Progress Note. <Salima Juarez - 04/13/17 15:21> Hospital Course: 04/13/17 COPD exacerbation with acute on chronic respiratory failure -wheezing is less and she has better air movement -will stop IV steroids and start Prednisone tomorrow -continue supportive care -still needing 3L of oxygen -suspect patient's lactic acidosis of 3.1 on admission was secondary to hypoxia rather severe sepsis. Lactate decreased to 1.5 on recheck. No source of infection identified, though she is being treated for COPD exacerbation. SIRS criteria include HR >90 and RR >20. Will check UA for completeness. -change status to inpatient d/t ongoing respiratory failure, lactic acidosis, pulmonary edema. LOS will exceed 2 midnights. Pulmonary edema with atypical chest pain (stable angina?) -again developed chest burning with exertion this morning -CT chest shows mild-moderate edema and triple vessel CAD -echo done, report pending -troponin negative -will consult Dr. Blevins for further recommendations -she is on a statin, ASA, BB, and ARB DM2 with hyperglycemia -BG elevated with steroids and cessation of Pioglitazone, which was held b/c of edema -could possibly increase metformin to 1000 mg BID; continue Glipizide -will increase SSI to high-dose corrective regimen 04/13/17 16:27- Cardiology Will need outpatient stress test to be done after current illness is resolved. No indication for further inpatient workup. Thank you for allowing us to participate in this patient's care. <Salima Juarez - 04/14/17 15:05> Sepsis Assessment - Evaluation Sepsis screening result: No Definite Risk <Salima Juarez - 04/13/17 15:21>
[2017-04-13] MEDS: GUAIFENESIN LA 600 MG TABLET PO SCH (20:20)
[2017-04-13] MEDS: LOVASTATIN 40 MG TABLET PO SCH ×2 (20:20→22:00)
[2017-04-14] MEDS: LEVOFLOXACIN 750 MG TABLET PO SCH (06:14)
[2017-04-14] MEDS: LORATADINE 10 MG TABLET PO SCH (06:14)
[2017-04-14] MEDS: PANTOPRAZOLE 20 MG TABLET PO SCH (06:14)
[2017-04-14] MEDS: ALBUTEROL/IPRATROPIUM 2.5mg-0.5mg/3ml NEB AEROSOL SCH ×4 (07:20→19:09)
[2017-04-14] MEDS: SALINE FLUSH 10ml SYRINGE IVF PRN (08:14)
[2017-04-14] MEDS: ENOXAPARIN 40 MG/0.4 ML INJECTION SQ SCH (08:14)
[2017-04-14] MEDS: NITROGLYCERIN 0.2 MG/HR PATCH TD SCH (08:14)
[2017-04-14] MEDS: GUAIFENESIN LA 600 MG TABLET PO SCH (08:15)
[2017-04-14] MEDS: ASPIRIN 81 MG CHEWABLE TABLET PO SCH (08:15)
[2017-04-14] MEDS: METFORMIN 500 MG TABLET PO SCH ×2 (08:15→17:37)
[2017-04-14] MEDS: MULTI-VITAMIN PLAIN TABLET PO SCH (08:15)
[2017-04-14] MEDS: CALCIUM 600 + VIT D 400 TABLET PO SCH (08:15)
[2017-04-14] MEDS: PredniSONE 20 MG TABLET PO SCH (08:15)
[2017-04-14] MEDS: GlipiZIDE 5 MG TABLET PO SCH ×2 (08:16→17:37)
--- NOTE | 2017-04-14 08:20 | Echocardiogram ---
DATE OF PROCEDURE April 12, [address] Gianni Jenkins This is a two-dimensional echo with spectral Doppler, color-flow and M-mode. It was obtained in a patient with dyspnea. Left atrial dimension is normal. Left ventricle end-diastolic dimension is normal. Left ventricular wall thickness is normal. LV systolic function is normal with ejection fraction of 60%. Right atrium is normal. Right ventricle is normal. Aortic root dimension is normal. Mitral valve is morphologically normal with mild mitral regurgitation. Aortic valve appears to be normal. Tricuspid valve shows mild tricuspid regurgitation with estimated pulmonary artery systolic pressure of 15. Pulmonary valve shows no pulmonary insufficiency. There is no pericardial effusion. IMPRESSION 1. Normal LV systolic function with ejection fraction of 60%. 2. Mild mitral regurgitation. 3. Mild tricuspid regurgitation with low pulmonary artery pressure of 15. MTDD
--- NOTE | 2017-04-14 14:42 | Progress Note ---
Subjective: F/U: Acute on chronic respiratory failure, COPD with exacerbation Starting to mobilize sputum. Has mild cough at times. No pain with breathing. Still very SOA with activities; will desaturate. No chest pressure or pain. Eating well-denies ab pain or nausea. Urinating well. No f/c. Notes slight increased edema to LE-no leg pain. Objective Vital signs: Temperature 96.1 F L 04/14/17 07:47 Pulse Rate 88 04/14/17 07:47 Respiratory Rate 18 04/14/17 11:40 Blood Pressure 138/67 04/14/17 07:47 Pulse Oximetry 97 04/14/17 11:40 Oxygen Delivery Method Nasal Cannula Oxygen Flow Rate 3 Weight: 110 kg - Constitutional Present: well nourished, well developed, obese, cooperative - Routine HEENT Exam Head: Present: normocephalic, atraumatic Eye: Present: EOMI, PERRL ENT: Present: mucous membranes moist (No thrush), nares patent - Routine Respiratory Exam Present: decreased breath sounds, distant breath sounds, diminished air movement. Absent: rhonchi, stridor, wheezes - Routine Cardiovascular Exam Present: RRR, S1, S2 - Routine Abdominal Exam Present: soft, normoactive bowel sounds, non distended, non tender. Absent: guarding, firm - Routine Extremities Exam Present: edema (+1-2 B LE edema). Absent: cyanosis, clubbing, extremity cold to touch - Routine Musculoskeletal Exam Musculoskeletal: Present: no clubbing or cyanosis, normal strength, no joint swelling - Routine Skin Exam Present: intact, dry, warm, normal turgor - Routine Neurological Exam Present: alert, oriented X3, CN II-XII intact, moving all extremities, vision grossly intact, hearing grossly intact, normal speech. Absent: motor deficit - Routine Psychiatric Exam Present: normal affect, normal thought process, cooperative, good insight, good judgment. Absent: anxious, agitated Results - Labs CBC & Chem 7: 04/14/17 05:21 04/14/17 05:21 Assessment and Plan (1) Acute exacerbation of chronic obstructive airways disease Current visit: Yes Status: Acute (2) Acute on chronic respiratory failure with hypoxemia Current visit: Yes Status: Acute (3) Atypical chest pain Current visit: Yes Status: Resolved (4) Pulmonary edema Current visit: Yes Status: Acute (5) Lactic acidosis Current visit: Yes Status: Resolved (6) Type II diabetes mellitus Current visit: Yes Status: Chronic (7) HTN (hypertension) Current visit: Yes Status: Chronic (8) Hyperlipemia Current visit: Yes Status: Chronic (9) Morbid (severe) obesity due to excess calories Current visit: Yes Status: Chronic DVT Prophylaxis: Lovenox Resuscitation Status: Full Code Assessment and Plan: Continue with levofloxacin for pulmonary coverage. Continue Prednisone and neb treatment to decrease pulmonary inflammation. PT/OT consulted and working with patient on her pulmonary debility. Encourage activities. Change Mucinex to Mucinex DM to help decrease cough. Encourage pt on acapella to help mobilize sputum. Recheck CXR in am. Monitor lab - WBC with elevation(likely steroid effect). Check BMP due to medication use. Case discussed with CM. Time spent with patient care 25 minutes. Sepsis Assessment - Evaluation Sepsis screening result: No Definite Risk Hospital Course Summary Disclaimer: The visit summary below is not to be considered part of the above Progress Note. Hospital Course: 04/12/17 Admit, observation status, under the hospitalist service. COPD exacerbation; acute on chronic hypoxia -Solu-Medrol IV in ED - start Prednisone 60 mg tomorrow am -Levaquin 750 mg daily -High-resolution CT chest ordered -D-dimer normal -DuoNeb QID; acapella -resume home meds once they are reconciled Atypical Chest Pain -start PPI -echocardiogram -tele -trop was negative -lipids checked 01/27/17: Chol 150; trig 134, HDL 47, LDL 76, VLDL 27. DM2 -last A1c was 6.1% on 01/27/17 -monitor sugars - SSI if needed -continue oral agents (once reconciled) Weight gain/weakness -check TSH 04/13/17 COPD exacerbation with acute on chronic respiratory failure -wheezing is less and she has better air movement -will stop IV steroids and start Prednisone tomorrow -continue supportive care -still needing 3L of oxygen -suspect patient's lactic acidosis of 3.1 on admission was secondary to hypoxia rather severe sepsis. Lactate decreased to 1.5 on recheck. No source of infection identified, though she is being treated for COPD exacerbation. SIRS criteria include HR >90 and RR >20. Will check UA for completeness. -change status to inpatient d/t ongoing respiratory failure, lactic acidosis, pulmonary edema. LOS will exceed 2 midnights. Pulmonary edema with atypical chest pain (stable angina?) -again developed chest burning with exertion this morning -CT chest shows mild-moderate edema and triple vessel CAD -echo done, report pending -troponin negative -will consult Dr. Blevins for further recommendations -she is on a statin, ASA, BB, and ARB DM2 with hyperglycemia -BG elevated with steroids and cessation of Pioglitazone, which was held b/c of edema -could possibly increase metformin to 1000 mg BID; continue Glipizide -will increase SSI to high-dose corrective regimen Add MucinexLA and Claritin to help loosen secretions. PT/OT to see tomorrow for pulmonary debility. Dr Blevins recommend outpatient stress testing wound pulmonary status stabilized -does not feel cardiac disease playing a role in pt's current dyspnea. 04/14/17 Continue with levofloxacin for pulmonary coverage. Continue Prednisone and neb treatment to decrease pulmonary inflammation. PT/OT consulted and working with patient on her pulmonary debility. Encourage activities. Change Mucinex to Mucinex DM to help decrease cough. Encourage pt on acapella to help mobilize sputum. Recheck CXR in am. Monitor lab - WBC with elevation(likely steroid effect). Check BMP due to medication use.
--- NOTE | 2017-04-14 15:09 | Cardiology Progress Note ---
Subjective Principal diagnosis: atypical chest pain <Salima Juarez 04/14/17 15:09> Interval history: Cathy is seen in her room on [facility]. States her breathing is improving and she is glad to know she doesn't need any immediate interventions on her heart. She denies any further chest pain, palpitations or syncope. <Salima Juarez 04/14/17 15:09> Exam Vital signs: Temperature 98.3 F 04/16/17 15:32 Pulse Rate 75 04/16/17 15:32 Respiratory Rate 16 04/16/17 15:32 Blood Pressure 162/68 H 04/16/17 15:32 Pulse Oximetry 90 04/16/17 15:32 Oxygen Delivery Method Nasal Cannula Oxygen Flow Rate 4 <Ayo Blevins - 04/21/17 08:11> Temperature 96.1 F L 04/14/17 07:47 Pulse Rate 88 04/14/17 07:47 Respiratory Rate 20 04/14/17 14:52 Blood Pressure 138/67 04/14/17 07:47 Pulse Oximetry 97 04/14/17 11:40 Oxygen Delivery Method Nasal Cannula Oxygen Flow Rate 3 <Salima Juarez 04/14/17 15:09> - Constitutional no acute distress, obese, cooperative <Salima Juarez 04/14/17 15:09> - Routine HEENT Exam ENT: Present: mucous membranes moist <Salima Juarez 04/14/17 15:09> - Routine Neck Exam Absent: JVD, carotid bruit <LarrySalima menendez 04/14/17 15:09> - Routine Chest/Breast/Axilla Exam Chest wall: Absent: tenderness <Salima Juarez 04/14/17 15:09> - Routine Respiratory Exam Present: CTA bilaterally, diminished air movement. Absent: rales, wheezes < Salima Juarez 04/14/17 15:09> - Routine Cardiovascular Exam Present: RRR, S1, S2, no murmur <Salima Juarez 04/14/17 15:09> - Routine Abdominal Exam Present: soft, normoactive bowel sounds <LarrySalima menendez 04/14/17 15:09> - Routine Extremities Exam Present: edema <LarrySalima menendez 04/14/17 15:09> - Routine Skin Exam Present: intact <Salima Juarez - 04/14/17 15:09> - Routine Neurological Exam Present: alert, oriented X3 <Salima Juarez - 04/14/17 15:09> - Routine Psychiatric Exam Present: normal affect, normal thought process <Salima Juarez - 04/14/17 15: 09> Hospital Course This is a general summary of the patient's hospital course. For more details refer to the complete medical record. <Ayo Blevins - 04/21/17 08:11> This is a general summary of the patient's hospital course. For more details refer to the complete medical record. <LarrySalima - 04/14/17 15:09> Hospital course: 04/13/17 16:27- Cardiology Will need outpatient stress test to be done after current illness is resolved. No indication for further inpatient workup. Thank you for allowing us to participate in this patient's care. 04/14/17 No change in plan of care. Will schedule follow up with Dr. Blevins's office 2- 3 weeks after hospitalization for scheduling a stress test. <Salima Juarez - 04/14/17 15:09> Progress Note-A&P (1) Acute exacerbation of chronic obstructive airways disease Status: Resolved (2) Acute on chronic respiratory failure with hypoxemia Status: Resolved (3) Atypical chest pain Status: Resolved (4) Type II diabetes mellitus Status: Chronic (5) HTN (hypertension) Status: Chronic (6) Hyperlipemia Status: Chronic <Ayo Blevins - 04/21/17 08:11> (1) Atypical chest pain Status: Resolved (2) Acute exacerbation of chronic obstructive airways disease Status: Acute (3) Acute on chronic respiratory failure with hypoxemia Status: Acute (4) Type II diabetes mellitus (5) HTN (hypertension) <LarrySalima 04/15/17 15:07> - Time Spent With Patient Total time spent is greater than 50% in coordination of care (as documented) at patient's floor/unit and/or counseling patient: <Ayo Blevins - 04/21/17 08:11> Total time spent is greater than 50% in coordination of care (as documented) at patient's floor/unit and/or counseling patient: <Salima Juarez - 04/14/17 15:09> less than 15 minutes <Salima Juarez - 04/14/17 15:09> - Attestation Attestation Narrative: Recommendation After examining the patient I agree with the above assessment. I am involved in the formulation of the patient's plan of care. <Ayo Blevins - 04/21/17 08:11> Sepsis Assessment - Evaluation Sepsis screening result: No Definite Risk <Salima Juarez - 04/14/17 15:09>
[2017-04-14] MEDS: INSULIN ASPART 100unit/ml INJECTION SQ PRN ×2 (17:38→22:29)
[2017-04-14] MEDS: GUAIFENESIN/D-METHORPHAN 600mg/30mg TABLET PO SCH (21:44)
[2017-04-14] MEDS: LOVASTATIN 40 MG TABLET PO SCH (21:44)
[2017-04-15] MEDS: LORATADINE 10 MG TABLET PO SCH (06:07)
[2017-04-15] MEDS: LEVOFLOXACIN 750 MG TABLET PO SCH (06:07)
[2017-04-15] MEDS: PANTOPRAZOLE 20 MG TABLET PO SCH (06:07)
[2017-04-15] MEDS: ALBUTEROL/IPRATROPIUM 2.5mg-0.5mg/3ml NEB AEROSOL SCH ×4 (07:31→19:36)
[2017-04-15] MEDS: METFORMIN 500 MG TABLET PO SCH ×2 (08:03→17:16)
[2017-04-15] MEDS: PredniSONE 20 MG TABLET PO SCH (08:05)
[2017-04-15] MEDS: GlipiZIDE 5 MG TABLET PO SCH ×2 (08:05→16:26)
[2017-04-15] MEDS: MULTI-VITAMIN PLAIN TABLET PO SCH (08:05)
[2017-04-15] MEDS: ASPIRIN 81 MG CHEWABLE TABLET PO SCH (08:06)
[2017-04-15] MEDS: GUAIFENESIN/D-METHORPHAN 600mg/30mg TABLET PO SCH ×2 (08:06→22:37)
[2017-04-15] MEDS: CALCIUM 600 + VIT D 400 TABLET PO SCH (08:08)
[2017-04-15] MEDS: NITROGLYCERIN 0.2 MG/HR PATCH TD SCH (08:09)
[2017-04-15] MEDS: ENOXAPARIN 40 MG/0.4 ML INJECTION SQ SCH (08:10)
--- NOTE | 2017-04-15 08:21 | XRay Report ---
INDICATION: F/U shortness of air, history of COPD PROCEDURE: CHEST 2-VIEWS UPRIGHT (PA & LAT) Encounter: Initial COMPARISON: Chest CT dated April 12, 2017 FINDINGS: Chronic appearing abnormalities in the lung bases with atelectasis and pleural thickening/scarring. No new infiltrates. Hyperinflation and COPD. No pneumothorax or definite pleural effusion. Heart size and mediastinal contours are stable. Pulmonary vascularity appears normal. Impression: No acute disease. COPD. .
--- NOTE | 2017-04-15 11:07 | Progress Note ---
Subjective: F/U: Acute on chronic respiratory failure, COPD with exacerbation Doing better-breathing feeling slightly easier. Less winded with activities ( but not quite to baseline yet). Does feel acapella very helpful in loosening secretions. Some cough, but decreasing congestion. Minimal chest wall discomfort from cough. No f/c. Not having chest heaviness or pressure. Eating well without nausea or ab pain. No mouth pain or soreness; notes some dry mouth. Stools slow, but pt not concerned (reports typically will go several days between stools at home). No having ab cramping or bloating. Passing flatus. Urinating well. Tolerating therapy and activities-feels strength slowly increasing. Objective Vital signs: Temperature 96.5 F L 04/15/17 07:57 Pulse Rate 88 04/15/17 08:00 Respiratory Rate 18 04/15/17 07:57 Blood Pressure 128/65 04/15/17 07:57 Pulse Oximetry 94 04/15/17 07:57 Oxygen Delivery Method Nasal Cannula Oxygen Flow Rate 4 Weight: 111.1 kg - Constitutional Present: no acute distress, well nourished, well developed, morbidly obese, cooperative Comments: Communicates well. - Routine HEENT Exam Head: Present: normocephalic, atraumatic Eye: Present: EOMI, PERRL. Absent: conjunctival icterus ENT: Present: mucous membranes moist (No oral thrush ), nares patent - Routine Respiratory Exam Present: decreased breath sounds, prolonged expiratory phase, distant breath sounds, diminished air movement. Absent: accessory muscle use, respiratory distress, rhonchi, wheezes, crackles - Routine Cardiovascular Exam Present: RRR, no murmur - Routine Abdominal Exam Present: soft, normoactive bowel sounds, non distended, non tender - Routine Extremities Exam Present: cyanosis, clubbing, edema (+2 bilateral lower ext ). Absent: joint swelling - Routine Musculoskeletal Exam Musculoskeletal: Present: no clubbing or cyanosis, normal strength, no joint swelling - Routine Skin Exam Present: intact, warm. Absent: pallor, mottling - Routine Neurological Exam Present: alert, oriented X3, CN II-XII intact, vision grossly intact, hearing grossly intact. Absent: motor deficit - Routine Psychiatric Exam Present: normal affect, normal thought process, cooperative, good insight, good judgment. Absent: anxious, agitated Results - Labs CBC & Chem 7: 04/15/17 05:37 04/15/17 05:37 Assessment and Plan (1) Acute exacerbation of chronic obstructive airways disease Current visit: Yes Status: Acute (2) Acute on chronic respiratory failure with hypoxemia Current visit: Yes Status: Acute (3) Atypical chest pain Current visit: Yes Status: Resolved (4) Pulmonary edema Current visit: Yes Status: Resolved (5) Lactic acidosis Current visit: Yes Status: Resolved (6) Type II diabetes mellitus Current visit: Yes Status: Chronic (7) HTN (hypertension) Current visit: Yes Status: Chronic (8) Hyperlipemia Current visit: Yes Status: Chronic (9) Morbid (severe) obesity due to excess calories Current visit: Yes Status: Chronic DVT Prophylaxis: Lovenox Resuscitation Status: Full Code Assessment and Plan: Repeat CXR showing no infiltrate or edema. Continue with levofloxacin for pulmonary coverage. Continue Prednisone and neb treatment to decrease pulmonary inflammation. Encourage continued acapella use to help loosen secretions. Wean O2 as able - likely pt needing continuous O2 at home. Encourage continured work with PT/OT to help her pulmonary debility. Encourage activities. With weight trending up, will give Bumex 1mg IV x1 today. Blood sugars stable with current medications and insulin sliding scale. A1c 6.9% . Monitor lab - WBC with elevation(likely steroid effect). Check BMP due to medication use. Possible discharge to home tomorrow if patient continues to make gains. Does have outpatient appointment scheduled with pulm on May 03 - pt to keep this appointment. Case discussed with CM. Time spent with patient care 25 minutes. Sepsis Assessment - Evaluation Sepsis screening result: No Definite Risk Hospital Course Summary Disclaimer: The visit summary below is not to be considered part of the above Progress Note. Hospital Course: 04/12/17 Admit, observation status, under the hospitalist service. COPD exacerbation; acute on chronic hypoxia -Solu-Medrol IV in ED - start Prednisone 60 mg tomorrow am -Levaquin 750 mg daily -High-resolution CT chest ordered -D-dimer normal -DuoNeb QID; acapella -resume home meds once they are reconciled Atypical Chest Pain -start PPI -echocardiogram -tele -trop was negative -lipids checked 01/27/17: Chol 150; trig 134, HDL 47, LDL 76, VLDL 27. DM2 -last A1c was 6.1% on 01/27/17 -monitor sugars - SSI if needed -continue oral agents (once reconciled) Weight gain/weakness -check TSH 04/13/17 COPD exacerbation with acute on chronic respiratory failure -wheezing is less and she has better air movement -will stop IV steroids and start Prednisone tomorrow -continue supportive care -still needing 3L of oxygen -suspect patient's lactic acidosis of 3.1 on admission was secondary to hypoxia rather severe sepsis. Lactate decreased to 1.5 on recheck. No source of infection identified, though she is being treated for COPD exacerbation. SIRS criteria include HR >90 and RR >20. Will check UA for completeness. -change status to inpatient d/t ongoing respiratory failure, lactic acidosis, pulmonary edema. LOS will exceed 2 midnights. Pulmonary edema with atypical chest pain (stable angina?) -again developed chest burning with exertion this morning -CT chest shows mild-moderate edema and triple vessel CAD -echo done, report pending -troponin negative -will consult Dr. Blevins for further recommendations -she is on a statin, ASA, BB, and ARB DM2 with hyperglycemia -BG elevated with steroids and cessation of Pioglitazone, which was held b/c of edema -could possibly increase metformin to 1000 mg BID; continue Glipizide -will increase SSI to high-dose corrective regimen Add MucinexLA and Claritin to help loosen secretions. PT/OT to see tomorrow for pulmonary debility. Dr Blevins recommend outpatient stress testing wound pulmonary status stabilized -does not feel cardiac disease playing a role in pt's current dyspnea. 04/13 - Cardiology Will need outpatient stress test to be done after current illness is resolved. No indication for further inpatient workup. Thank you for allowing us to participate in this patient's care. 04/14/17 Continue with levofloxacin for pulmonary coverage. Continue Prednisone and neb treatment to decrease pulmonary inflammation. PT/OT consulted and working with patient on her pulmonary debility. Encourage activities. Change Mucinex to Mucinex DM to help decrease cough. Encourage pt on acapella to help mobilize sputum. Recheck CXR in am. Monitor lab - WBC with elevation(likely steroid effect). Check BMP due to medication use. 04/14 - Cardiology No change in plan of care. Will schedule follow up with Dr. Blevins's office 2- 3 weeks after hospitalization for scheduling a stress test. 04/15 Repeat CXR showing no infiltrate or edema. Continue with levofloxacin for pulmonary coverage. Continue Prednisone and neb treatment to decrease pulmonary inflammation. Encourage continued acapella use to help loosen secretions. Wean O2 as able - likely pt needing continuous O2 at home. Encourage continured work with PT/OT to help her pulmonary debility. Encourage activities. With weight trending up, will give Bumex 1mg IV x1 today. Blood sugars stable with current medications and insulin sliding scale. A1c 6.9% . Monitor lab - WBC with elevation(likely steroid effect). Check BMP due to medication use. Possible discharge to home tomorrow if patient continues to make gains. Does have outpatient appointment scheduled with pulm on May 03 - pt to keep this appointment.
--- NOTE | 2017-04-15 15:10 | Cardiology Progress Note ---
Subjective Principal diagnosis: atypical chest pain <Salima Juarez - 04/15/17 15:10> Interval history: Cathy is seen in her room on Medical. <Salima Juarez 04/15/17 15:10> Exam Vital signs: Temperature 98.3 F 04/16/17 15:32 Pulse Rate 75 04/16/17 15:32 Respiratory Rate 16 04/16/17 15:32 Blood Pressure 162/68 H 04/16/17 15:32 Pulse Oximetry 90 04/16/17 15:32 Oxygen Delivery Method Nasal Cannula Oxygen Flow Rate 4 <Ayo Blevins - 04/21/17 08:14> Temperature 96.5 F L 04/15/17 07:57 Pulse Rate 88 04/15/17 08:00 Respiratory Rate 16 04/15/17 14:45 Blood Pressure 128/65 04/15/17 07:57 Pulse Oximetry 97 04/15/17 14:45 Oxygen Delivery Method Nasal Cannula Oxygen Flow Rate 3 <Salima Juarez 04/15/17 15:10> - Constitutional no acute distress, cooperative <LarrySalima menendez [facility] 04/15/17 15:10> - Routine HEENT Exam ENT: Present: mucous membranes moist <LarrySalima menendez [facility] 04/15/17 15:10> - Routine Neck Exam Absent: JVD, carotid bruit <LarrySalima menendez [facility] 04/15/17 15:10> - Routine Chest/Breast/Axilla Exam Chest wall: Absent: tenderness <Larry,Amy [facility] 04/15/17 15:10> - Routine Respiratory Exam Present: decreased breath sounds, diminished air movement. Absent: rales, wheezes <LarrySalima menendez [facility] 04/15/17 15:10> - Routine Cardiovascular Exam Present: RRR, S1, S2 <LarrySalima menendez [facility] 04/15/17 15:10> - Routine Abdominal Exam Present: soft, normoactive bowel sounds <LarrySalima menendez [facility] 04/15/17 15:10> - Routine Extremities Exam Present: edema <LarrySalima menendez [facility] 04/15/17 15:10> - Routine Skin Exam Present: intact <LarrySalima menendez [facility] 04/15/17 15:10> - Routine Neurological Exam Present: alert, oriented X3 <Salima Juarez - 04/15/17 15:10> - Routine Psychiatric Exam Present: normal affect, normal thought process <Salima Juarez - 04/15/17 15: 10> Hospital Course This is a general summary of the patient's hospital course. For more details refer to the complete medical record. <GenAyo - 04/21/17 08:14> This is a general summary of the patient's hospital course. For more details refer to the complete medical record. <Salima Juarez - 04/15/17 15:10> Hospital course: 04/12/17 Admit, observation status, under the hospitalist service. COPD exacerbation; acute on chronic hypoxia -Solu-Medrol IV in ED - start Prednisone 60 mg tomorrow am -Levaquin 750 mg daily -High-resolution CT chest ordered -D-dimer normal -DuoNeb QID; acapella -resume home meds once they are reconciled Atypical Chest Pain -start PPI -echocardiogram -tele -trop was negative -lipids checked 01/27/17: Chol 150; trig 134, HDL 47, LDL 76, VLDL 27. DM2 -last A1c was 6.1% on 01/27/17 -monitor sugars - SSI if needed -continue oral agents (once reconciled) Weight gain/weakness -check TSH 04/13/17 COPD exacerbation with acute on chronic respiratory failure -wheezing is less and she has better air movement -will stop IV steroids and start Prednisone tomorrow -continue supportive care -still needing 3L of oxygen -suspect patient's lactic acidosis of 3.1 on admission was secondary to hypoxia rather severe sepsis. Lactate decreased to 1.5 on recheck. No source of infection identified, though she is being treated for COPD exacerbation. SIRS criteria include HR >90 and RR >20. Will check UA for completeness. -change status to inpatient d/t ongoing respiratory failure, lactic acidosis, pulmonary edema. LOS will exceed 2 midnights. Pulmonary edema with atypical chest pain (stable angina?) -again developed chest burning with exertion this morning -CT chest shows mild-moderate edema and triple vessel CAD -echo done, report pending -troponin negative -will consult Dr. Blevins for further recommendations -she is on a statin, ASA, BB, and ARB DM2 with hyperglycemia -BG elevated with steroids and cessation of Pioglitazone, which was held b/c of edema -could possibly increase metformin to 1000 mg BID; continue Glipizide -will increase SSI to high-dose corrective regimen Add MucinexLA and Claritin to help loosen secretions. PT/OT to see tomorrow for pulmonary debility. Dr Blevins recommend outpatient stress testing wound pulmonary status stabilized -does not feel cardiac disease playing a role in pt's current dyspnea. 04/13 - Cardiology Will need outpatient stress test to be done after current illness is resolved. No indication for further inpatient workup. Thank you for allowing us to participate in this patient's care. 04/14/17 Continue with levofloxacin for pulmonary coverage. Continue Prednisone and neb treatment to decrease pulmonary inflammation. PT/OT consulted and working with patient on her pulmonary debility. Encourage activities. Change Mucinex to Mucinex DM to help decrease cough. Encourage pt on acapella to help mobilize sputum. Recheck CXR in am. Monitor lab - WBC with elevation(likely steroid effect). Check BMP due to medication use. 04/14 - Cardiology No change in plan of care. Will schedule follow up with Dr. Blevins's office 2- 3 weeks after hospitalization for scheduling a stress test. 04/15 Repeat CXR showing no infiltrate or edema. Continue with levofloxacin for pulmonary coverage. Continue Prednisone and neb treatment to decrease pulmonary inflammation. Encourage continued acapella use to help loosen secretions. Wean O2 as able - likely pt needing continuous O2 at home. Encourage continured work with PT/OT to help her pulmonary debility. Encourage activities. With weight trending up, will give Bumex 1mg IV x1 today. Blood sugars stable with current medications and insulin sliding scale. A1c 6.9% . Monitor lab - WBC with elevation(likely steroid effect). Check BMP due to medication use. Possible discharge to home tomorrow if patient continues to make gains. Does have outpatient appointment scheduled with pulm on May 03 - pt to keep this appointment. <Salima Juarez - 04/15/17 15:10> Progress Note-A&P (1) Acute exacerbation of chronic obstructive airways disease Status: Resolved (2) Acute on chronic respiratory failure with hypoxemia Status: Resolved (3) Atypical chest pain Status: Resolved (4) Type II diabetes mellitus Status: Chronic (5) HTN (hypertension) Status: Chronic (6) Hyperlipemia Status: Chronic <Ayo Blevins 04/21/17 08:14> (1) Atypical chest pain Status: Resolved (2) Acute exacerbation of chronic obstructive airways disease Status: Acute (3) Acute on chronic respiratory failure with hypoxemia Status: Acute (4) Type II diabetes mellitus Status: Chronic Assessment and plan: per attending (5) HTN (hypertension) Status: Chronic Assessment and plan: Add Amlodipine 5mg daily. Continue BB, ARB (6) Hyperlipemia Status: Chronic <Salima Juarez 04/15/17 18:47> - Time Spent With Patient Total time spent is greater than 50% in coordination of care (as documented) at patient's floor/unit and/or counseling patient: <Ayo Blevins 04/21/17 08:14> Total time spent is greater than 50% in coordination of care (as documented) at patient's floor/unit and/or counseling patient: <Saliam Juarez 04/15/17 15:10> less than 15 minutes <Salima Juarez 04/15/17 15:10> - Attestation Attestation Narrative: Recommendation After examining the patient I agree with the above assessment. I am involved in the formulation of the patient's plan of care. <Ayo Blevins 04/21/17 08:14> Sepsis Assessment - Evaluation Sepsis screening result: No Definite Risk <Salima Juarez 04/15/17 15:10>
[2017-04-15] MEDS ORDERED: PNEUMOCOCCAL VAC ADMIN CHARGE INJ ONE (16:04)
[2017-04-15] MEDS ORDERED: PNEUMOCOCCAL 23 VACCINE 0.5ml INJECTION IM ONE (16:10)
[2017-04-15] MEDS: INSULIN ASPART 100unit/ml INJECTION SQ PRN ×2 (17:15→21:09)
[2017-04-15] MEDS: AMLODIPINE 5 MG TABLET PO SCH (20:00)
[2017-04-15] MEDS: LOVASTATIN 40 MG TABLET PO SCH (22:38)
[2017-04-16] MEDS: LEVOFLOXACIN 750 MG TABLET PO SCH (06:34)
[2017-04-16] MEDS: PANTOPRAZOLE 20 MG TABLET PO SCH (06:34)
[2017-04-16] MEDS: LORATADINE 10 MG TABLET PO SCH (06:34)
[2017-04-16] MEDS: GlipiZIDE 5 MG TABLET PO SCH (06:34)
[2017-04-16] MEDS: ALBUTEROL/IPRATROPIUM 2.5mg-0.5mg/3ml NEB AEROSOL SCH ×3 (07:27→14:58)
[2017-04-16] MEDS: TIOTROPIUM 18mcg/cap HANDIHALER ORAL INH SCH (08:36)
[2017-04-16] MEDS: CALCIUM 600 + VIT D 400 TABLET PO SCH (08:48)
[2017-04-16] MEDS: METFORMIN 500 MG TABLET PO SCH (08:49)
[2017-04-16] MEDS: ASPIRIN 81 MG CHEWABLE TABLET PO SCH (08:49)
[2017-04-16] MEDS: AMLODIPINE 5 MG TABLET PO SCH (08:49)
[2017-04-16] MEDS: MULTI-VITAMIN PLAIN TABLET PO SCH (08:49)
[2017-04-16] MEDS: PredniSONE 20 MG TABLET PO SCH (08:49)
[2017-04-16] MEDS: GUAIFENESIN/D-METHORPHAN 600mg/30mg TABLET PO SCH (08:49)
[2017-04-16] MEDS: ENOXAPARIN 40 MG/0.4 ML INJECTION SQ SCH (08:50)
[2017-04-16] MEDS: NITROGLYCERIN 0.2 MG/HR PATCH TD SCH (08:50)
[2017-04-16 10:17] VITALS: RESP 16
--- NOTE | 2017-04-16 12:35 | Cardiology Progress Note ---
Subjective Principal diagnosis: atypical chest pain <Salima Juarez - 04/16/17 12:35> Interval history: Cathy is seen in her room on [facility]. she states she expects to go home today. She denies cardiac complaints <Salima Juarez - 04/16/17 12:35> Exam Vital signs: Temperature 98.3 F 04/16/17 15:32 Pulse Rate 75 04/16/17 15:32 Respiratory Rate 16 04/16/17 15:32 Blood Pressure 162/68 H 04/16/17 15:32 Pulse Oximetry 90 04/16/17 15:32 Oxygen Delivery Method Nasal Cannula Oxygen Flow Rate 4 <Ayo Blevins - 04/21/17 08:16> Temperature 98.9 F 04/16/17 07:00 Pulse Rate 89 04/16/17 08:00 Respiratory Rate 16 04/16/17 10:10 Blood Pressure 146/67 H 04/16/17 07:00 Pulse Oximetry 95 04/16/17 07:20 Oxygen Delivery Method Nasal Cannula Oxygen Flow Rate 3 <Salima Juarez 04/16/17 12:35> - Constitutional no acute distress, cooperative <Salima Juarez 04/16/17 12:35> - Routine HEENT Exam ENT: Present: mucous membranes moist <Salima Juarez 04/16/17 12:35> - Routine Neck Exam Absent: JVD, carotid bruit <Salima Juarez 04/16/17 12:35> - Routine Respiratory Exam Present: decreased breath sounds. Absent: rales, wheezes <Salima Juarez 12:35> - Routine Cardiovascular Exam Present: RRR, S1, S2, no murmur <LarrySalima Cruz 04/16/17 12:35> - Routine Abdominal Exam Present: soft, normoactive bowel sounds <LarrySalima Cruz 04/16/17 12:35> - Routine Extremities Exam Present: edema <LarrySalima Cruz 04/16/17 12:35> - Routine Skin Exam Present: intact <LarrySalima Cruz 04/16/17 12:35> - Routine Neurological Exam Present: alert, oriented X3 <LarrySalima Cruz 04/16/17 12:35> - Routine Psychiatric Exam Present: normal affect, normal thought process <Salima Juarez - 04/16/17 12: 35> Hospital Course This is a general summary of the patient's hospital course. For more details refer to the complete medical record. <TelmaangelAyo - 04/21/17 08:16> This is a general summary of the patient's hospital course. For more details refer to the complete medical record. <Salima Juarez - 04/16/17 12:35> Hospital course: 04/12/17 Admit, observation status, under the hospitalist service. COPD exacerbation; acute on chronic hypoxia -Solu-Medrol IV in ED - start Prednisone 60 mg tomorrow am -Levaquin 750 mg daily -High-resolution CT chest ordered -D-dimer normal -DuoNeb QID; acapella -resume home meds once they are reconciled Atypical Chest Pain -start PPI -echocardiogram -tele -trop was negative -lipids checked 01/27/17: Chol 150; trig 134, HDL 47, LDL 76, VLDL 27. DM2 -last A1c was 6.1% on 01/27/17 -monitor sugars - SSI if needed -continue oral agents (once reconciled) Weight gain/weakness -check TSH 04/13/17 COPD exacerbation with acute on chronic respiratory failure -wheezing is less and she has better air movement -will stop IV steroids and start Prednisone tomorrow -continue supportive care -still needing 3L of oxygen -suspect patient's lactic acidosis of 3.1 on admission was secondary to hypoxia rather severe sepsis. Lactate decreased to 1.5 on recheck. No source of infection identified, though she is being treated for COPD exacerbation. SIRS criteria include HR >90 and RR >20. Will check UA for completeness. -change status to inpatient d/t ongoing respiratory failure, lactic acidosis, pulmonary edema. LOS will exceed 2 midnights. Pulmonary edema with atypical chest pain (stable angina?) -again developed chest burning with exertion this morning -CT chest shows mild-moderate edema and triple vessel CAD -echo done, report pending -troponin negative -will consult Dr. Blevins for further recommendations -she is on a statin, ASA, BB, and ARB DM2 with hyperglycemia -BG elevated with steroids and cessation of Pioglitazone, which was held b/c of edema -could possibly increase metformin to 1000 mg BID; continue Glipizide -will increase SSI to high-dose corrective regimen Add MucinexLA and Claritin to help loosen secretions. PT/OT to see tomorrow for pulmonary debility. Dr Blevins recommend outpatient stress testing wound pulmonary status stabilized -does not feel cardiac disease playing a role in pt's current dyspnea. 04/13 - Cardiology Will need outpatient stress test to be done after current illness is resolved. No indication for further inpatient workup. Thank you for allowing us to participate in this patient's care. 04/14/17 Continue with levofloxacin for pulmonary coverage. Continue Prednisone and neb treatment to decrease pulmonary inflammation. PT/OT consulted and working with patient on her pulmonary debility. Encourage activities. Change Mucinex to Mucinex DM to help decrease cough. Encourage pt on acapella to help mobilize sputum. Recheck CXR in am. Monitor lab - WBC with elevation(likely steroid effect). Check BMP due to medication use. 04/14 - Cardiology No change in plan of care. Will schedule follow up with Dr. Blevins's office 2- 3 weeks after hospitalization for scheduling a stress test. 04/15 Repeat CXR showing no infiltrate or edema. Continue with levofloxacin for pulmonary coverage. Continue Prednisone and neb treatment to decrease pulmonary inflammation. Encourage continued acapella use to help loosen secretions. Wean O2 as able - likely pt needing continuous O2 at home. Encourage continured work with PT/OT to help her pulmonary debility. Encourage activities. With weight trending up, will give Bumex 1mg IV x1 today. Blood sugars stable with current medications and insulin sliding scale. A1c 6.9% . Monitor lab - WBC with elevation(likely steroid effect). Check BMP due to medication use. Possible discharge to home tomorrow if patient continues to make gains. Does have outpatient appointment scheduled with pulm on May 03 - pt to keep this appointment. <Salima Juarez - 04/16/17 12:35> Progress Note-A&P (1) Acute exacerbation of chronic obstructive airways disease Status: Resolved (2) Acute on chronic respiratory failure with hypoxemia Status: Resolved (3) Atypical chest pain Status: Resolved (4) Type II diabetes mellitus Status: Chronic (5) HTN (hypertension) Status: Chronic (6) Hyperlipemia Status: Chronic <Ayo Blevins - 04/21/17 08:16> (1) Atypical chest pain Status: Resolved (2) Acute exacerbation of chronic obstructive airways disease Status: Acute (3) Acute on chronic respiratory failure with hypoxemia Status: Acute (4) Type II diabetes mellitus Status: Chronic (5) HTN (hypertension) Status: Chronic Assessment and plan: Began Amlodipine on 04/15/17. Continue on discharge, follow up with Dr. Blevins is 2-4 weeks to schedule outpatient stress test (6) Hyperlipemia Status: Chronic <Salima Juarez - 04/16/17 12:31> - Time Spent With Patient Total time spent is greater than 50% in coordination of care (as documented) at patient's floor/unit and/or counseling patient: <Ayo Blevins - 04/21/17 08:16> Total time spent is greater than 50% in coordination of care (as documented) at patient's floor/unit and/or counseling patient: <Salima Juarez - 04/16/17 12:35> less than 15 minutes <Salima Juarez - 04/16/17 12:35> - Attestation Attestation Narrative: Recommendation After examining the patient I agree with the above assessment. I am involved in the formulation of the patient's plan of care. <Ayo Blevins - 04/21/17 08:16> Sepsis Assessment - Evaluation Sepsis screening result: No Definite Risk <Salima Juarez 04/16/17 12:35>
--- NOTE | 2017-04-16 12:50 | Discharge Summary ---
Discharge Plan - Med Rec/Dispo Referrals/Follow Up: Ayo Blevins MD [Physician] - 05/12/17 10:00 am [facility] Instructions: COPD (Chronic Obstructive Pulmonary Disease) (GEN) Prescriptions: New Amlodipine [Norvasc] 5 mg PO DAILY #30 tablet No Action glipiZIDE [Glipizide] 1 tab PO DAILY #0 tab Lovastatin 40 mg PO DAILY #0 tab Losartan/Hydrochlorothiazide [Losartan-Hctz 100-25 mg Tab] 1 tab PO DAILY #0 tab Metoprolol Tartrate 50 mg PO BIDWM #0 tab Calcium 600 + D [Caltrate + D] 1 tab PO DAILY Aspirin [Bianca Chewable Aspirin] 81 mg PO DAILY Theophylline Anhydrous 300 mg PO DAILY Multivitamin [One Daily Multivitamin] 1 each PO DAILY Cinnamon Bark [Cinnamon] 500 mg PO DAILY Fluticasone/Salmeterol 250/50 [Advair Diskus] 1 puff INH BID Tiotropium Handihaler [Spiriva] 1 each INH DAILY Pioglitazone HCl [Pioglitazone HCl] 0.5 tab PO BID Metformin HCl 1.5 tab PO BID #0 tab Albuterol Sulfate [Proair Respiclick] 90 mcg INH QID PRN PRN Reason: Wheezing Psyllium [Metamucil] 1 packet PO DAILY PRN PRN Reason: Constipation - Disposition 01 Discharged Home, Self-Care
--- NOTE | 2017-04-16 14:42 | Progress Note ---
Subjective: F/U: Acute on chronic respiratory failure, COPD with exacerbation Doing better-breathing continues to improve. Less winded with activities - recovers saturations quicker. Cough decreasing. Not having pain with coughing. Using acapella and feeling it is really helpful. Eating well-no stomatitis. Still no stools, but not unusual for her to go many days between movements-not feeling constipated or uncomfortable. Urinating well. No f/c. Feels ready for discharge to home. Objective Vital signs: Temperature 98.9 F 04/16/17 07:00 Pulse Rate 89 04/16/17 08:00 Respiratory Rate 16 04/16/17 10:10 Blood Pressure 146/67 H 04/16/17 07:00 Pulse Oximetry 95 04/16/17 07:20 Oxygen Delivery Method Nasal Cannula Oxygen Flow Rate 3 Weight: 110.1 kg - Constitutional Present: no acute distress, well nourished, well developed, morbidly obese, cooperative - Routine HEENT Exam Head: Present: normocephalic, atraumatic Eye: Present: EOMI, PERRL. Absent: conjunctival icterus ENT: Present: mucous membranes moist - Routine Respiratory Exam Present: decreased breath sounds, prolonged expiratory phase, respiratory distress, wheezes (Faint end expiratory bilaterally). Absent: accessory muscle use, distant breath sounds, diminished air movement - Routine Cardiovascular Exam Present: RRR, no murmur - Routine Abdominal Exam Present: soft, normoactive bowel sounds, non distended, non tender - Routine Extremities Exam Present: edema (+1 bilateral), pulses intact. Absent: cyanosis, clubbing - Routine Musculoskeletal Exam Musculoskeletal: Present: no clubbing or cyanosis, normal strength - Routine Skin Exam Present: intact, warm. Absent: pallor, mottling - Routine Neurological Exam Present: alert, oriented X3, CN II-XII intact, vision grossly intact, hearing grossly intact. Absent: motor deficit - Routine Psychiatric Exam Present: normal affect, normal thought process, cooperative, good insight, good judgment. Absent: anxious, agitated Results - Labs CBC & Chem 7: 04/16/17 04:39 04/16/17 04:39 Assessment and Plan (1) Acute exacerbation of chronic obstructive airways disease Current visit: Yes Status: Acute (2) Acute on chronic respiratory failure with hypoxemia Current visit: Yes Status: Acute (3) Atypical chest pain Current visit: Yes Status: Resolved (4) Pulmonary edema Current visit: Yes Status: Resolved (5) Lactic acidosis Current visit: Yes Status: Resolved (6) Type II diabetes mellitus Current visit: Yes Status: Chronic (7) HTN (hypertension) Current visit: Yes Status: Chronic (8) Hyperlipemia Current visit: Yes Status: Chronic (9) Morbid (severe) obesity due to excess calories Current visit: Yes Status: Chronic DVT Prophylaxis: Lovenox Resuscitation Status: Full Code Assessment and Plan: Can d/c levofloxacin - COPD exacerbation stablized and no definitive infiltrate noted. Has had 5 days of treatment. Continue Prednisone 40mg daily for 1 week - Can start slow taper by PCP in outpatient setting. RT to assess home O2 needs - suspect needing more than prior to admission. Continue Acapella QID for 1 week, then as needed for cough and congestion. Encourage pt to continue to walk and be active to help health status. Will discharge to home as pulmonary status has improved. F/U with Dr Amaya in 1 week for medical eval and to taper Predisone. Does have outpatient appointment scheduled with pulm on May 03 - pt to keep this appointment. Will f/u with Dr Blevins in 2-3 weeks for cardiac stress testing. See orders for details. Case discussed with CM. Time spent with patient care and discharge greater than 35 minutes. Sepsis Assessment - Evaluation Sepsis screening result: No Definite Risk Hospital Course Summary Disclaimer: The visit summary below is not to be considered part of the above Progress Note. Hospital Course: 04/12/17 Admit, observation status, under the hospitalist service. COPD exacerbation; acute on chronic hypoxia -Solu-Medrol IV in ED - start Prednisone 60 mg tomorrow am -Levaquin 750 mg daily -High-resolution CT chest ordered -D-dimer normal -DuoNeb QID; acapella -resume home meds once they are reconciled Atypical Chest Pain -start PPI -echocardiogram -tele -trop was negative -lipids checked 01/27/17: Chol 150; trig 134, HDL 47, LDL 76, VLDL 27. DM2 -last A1c was 6.1% on 01/27/17 -monitor sugars - SSI if needed -continue oral agents (once reconciled) Weight gain/weakness -check TSH 04/13/17 COPD exacerbation with acute on chronic respiratory failure -wheezing is less and she has better air movement -will stop IV steroids and start Prednisone tomorrow -continue supportive care -still needing 3L of oxygen -suspect patient's lactic acidosis of 3.1 on admission was secondary to hypoxia rather severe sepsis. Lactate decreased to 1.5 on recheck. No source of infection identified, though she is being treated for COPD exacerbation. SIRS criteria include HR >90 and RR >20. Will check UA for completeness. -change status to inpatient d/t ongoing respiratory failure, lactic acidosis, pulmonary edema. LOS will exceed 2 midnights. Pulmonary edema with atypical chest pain (stable angina?) -again developed chest burning with exertion this morning -CT chest shows mild-moderate edema and triple vessel CAD -echo done, report pending -troponin negative -will consult Dr. Blevins for further recommendations -she is on a statin, ASA, BB, and ARB DM2 with hyperglycemia -BG elevated with steroids and cessation of Pioglitazone, which was held b/c of edema -could possibly increase metformin to 1000 mg BID; continue Glipizide -will increase SSI to high-dose corrective regimen Add MucinexLA and Claritin to help loosen secretions. PT/OT to see tomorrow for pulmonary debility. Dr Blevins recommend outpatient stress testing wound pulmonary status stabilized -does not feel cardiac disease playing a role in pt's current dyspnea. 04/13 - Cardiology Will need outpatient stress test to be done after current illness is resolved. No indication for further inpatient workup. Thank you for allowing us to participate in this patient's care. 04/14/17 Continue with levofloxacin for pulmonary coverage. Continue Prednisone and neb treatment to decrease pulmonary inflammation. PT/OT consulted and working with patient on her pulmonary debility. Encourage activities. Change Mucinex to Mucinex DM to help decrease cough. Encourage pt on acapella to help mobilize sputum. Recheck CXR in am. Monitor lab - WBC with elevation(likely steroid effect). Check BMP due to medication use. 04/14 - Cardiology No change in plan of care. Will schedule follow up with Dr. Blevins's office 2- 3 weeks after hospitalization for scheduling a stress test. 04/15/17 Repeat CXR showing no infiltrate or edema. Continue with levofloxacin for pulmonary coverage. Continue Prednisone and neb treatment to decrease pulmonary inflammation. Encourage continued acapella use to help loosen secretions. Wean O2 as able - likely pt needing continuous O2 at home. Encourage continured work with PT/OT to help her pulmonary debility. Encourage activities. With weight trending up, will give Bumex 1mg IV x1 today. Blood sugars stable with current medications and insulin sliding scale. A1c 6.9% . Monitor lab - WBC with elevation(likely steroid effect). Check BMP due to medication use. Possible discharge to home tomorrow if patient continues to make gains. Does have outpatient appointment scheduled with pulwendie on May 03 - pt to keep this appointment. 04/16/17 Can d/c levofloxacin - COPD exacerbation stablized and no definitive infiltrate noted. Has had 5 days of treatment. Continue Prednisone 40mg daily for 1 week - Can start slow taper by PCP in outpatient setting. RT to assess home O2 needs - suspect needing more than prior to admission. Continue Acapella QID for 1 week, then as needed for cough and congestion. Encourage pt to continue to walk and be active to help health status. Cardiology has started Norvasc 5mg daily to help BP. Continue in outpatient setting. Will discharge to home as pulmonary status has improved. F/U with Dr Amaya in 1 week for medical eval and to taper Predisone. Does have outpatient appointment scheduled with pulwendie on May 03 - pt to keep this appointment. Will f/u with Dr Blevins in 2-3 weeks for cardiac stress testing. See orders for details.
--- NOTE | 2017-04-16 15:06 | Discharge Summary ---
Discharge Information Date of admission: 04/13/17 11:48 Anticipated date of discharge: 04/16/17 Attending Physician: Munir Orourke MD Primary care physician: Marcos Coffman MD Consults: 04/13/17 12:49 Physician Consult [CONS] Routine Consulting Provider: Ayo Blevins Reason For Exam: pulmonary edema; exertional chest pain Ordering Provider has Notified A And P Mechanic: No - Discharge Diagnosis (1) Acute exacerbation of chronic obstructive airways disease Status: Resolved (2) Acute on chronic respiratory failure with hypoxemia Status: Resolved (3) Atypical chest pain Status: Resolved (4) Pulmonary edema Status: Resolved (5) Lactic acidosis Status: Resolved (6) Type II diabetes mellitus Qualifiers: Diabetes mellitus complication status: without complication Diabetes mellitus termination clerk insulin use: without termination clerk use Qualified Code(s): E11.9 - Type 2 diabetes mellitus without complications Status: Chronic (7) HTN (hypertension) Qualifiers: Hypertension type: essential hypertension Qualified Code(s): I10 - Essential (primary) hypertension Status: Chronic (8) Hyperlipemia Qualifiers: Hyperlipidemia type: mixed hyperlipidemia Qualified Code(s): E78.2 - Mixed hyperlipidemia Status: Chronic (9) Morbid (severe) obesity due to excess calories Status: Chronic - Procedures Procedures: Type of Exam(s): US echo doppler complete DATE OF PROCEDURE April 12, 2017 This is a two-dimensional echo with spectral Doppler, color-flow and M-mode. It was obtained in a patient with dyspnea. Left atrial dimension is normal. Left ventricle end-diastolic dimension is normal. Left ventricular wall thickness is normal. LV systolic function is normal with ejection fraction of 60%. Right atrium is normal. Right ventricle is normal. Aortic root dimension is normal. Mitral valve is morphologically normal with mild mitral regurgitation. Aortic valve appears to be normal. Tricuspid valve shows mild tricuspid regurgitation with estimated pulmonary artery systolic pressure of 15. Pulmonary valve shows no pulmonary insufficiency. There is no pericardial effusion. IMPRESSION 1. Normal LV systolic function with ejection fraction of 60%. 2. Mild mitral regurgitation. 3. Mild tricuspid regurgitation with low pulmonary artery pressure of 15. Date of Exam: 04/12/17: CT chest high res PROCEDURE: CT chest high res: Comparison: Chest x-ray dated April 12, [address] chest dated October 20, 2014 Technique: Axial CT images were performed through the chest without intravenous contrast. Coronal and sagittal two-dimensional reformats. Automated Exposure Control and Iterative Reconstruction dose reducing techniques were utilized. Findings: Mild to moderate edema. There is significant air trapping consistent with small airways disease. Prior consolidation in the right middle lobe is no longer identified. There is chronic pleural abnormality in the right lower lobe with areas of scarring and rounded atelectasis. This is stable from the prior chest CT. There is also linear scarring in the left lower lobe. No acute focal pneumonia. No pleural effusion or pneumothorax. No worrisome pulmonary nodules or masses. No axillary adenopathy by CT size criteria. Small superior paratracheal nodes are unchanged. Slight interval increase in size of a couple AP window nodes on axial image #23 measuring up to 1.1 cm in short axis diameter. Heart size is stable. No pericardial effusion. Three vessel coronary artery disease. The upper abdomen shows no acute findings. No significant change in the pattern of air trapping on the prone phase imaging. Impression: 1. No acute disease process seen in the chest. Evidence of COPD and chronic small airways disease. 2. 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 3. Borderline enlarged mediastinal lymph nodes could be reactive. - Laboratory Labs: 04/16/17 04:39 04/16/17 04:39 - Radiology Radiology: Date of Exam: 04/12/17: CT chest high res PROCEDURE: CT chest high res: Comparison: Chest x-ray dated April 12, [address] chest dated October 20, 2014 Technique: Axial CT images were performed through the chest without intravenous contrast. Coronal and sagittal two-dimensional reformats. Automated Exposure Control and Iterative Reconstruction dose reducing techniques were utilized. Findings: Mild to moderate edema. There is significant air trapping consistent with small airways disease. Prior consolidation in the right middle lobe is no longer identified. There is chronic pleural abnormality in the right lower lobe with areas of scarring and rounded atelectasis. This is stable from the prior chest CT. There is also linear scarring in the left lower lobe. No acute focal pneumonia. No pleural effusion or pneumothorax. No worrisome pulmonary nodules or masses. No axillary adenopathy by CT size criteria. Small superior paratracheal nodes are unchanged. Slight interval increase in size of a couple AP window nodes on axial image #23 measuring up to 1.1 cm in short axis diameter. Heart size is stable. No pericardial effusion. Three vessel coronary artery disease. The upper abdomen shows no acute findings. No significant change in the pattern of air trapping on the prone phase imaging. Impression: 1. No acute disease process seen in the chest. Evidence of COPD and chronic small airways disease. 2. 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 3. Borderline enlarged mediastinal lymph nodes could be reactive. History of Present Illness HPI: Started noticing some exertional SOA in late January - used oxygen temporarily during the day and after a short period of time she was able to take it off. She had been using oxygen only at night. Her dyspnea continued to worsen, but since mid-February she has been using 3L of oxygen [id number]. Unfortunately, she's continued to be limited in her ADLs/IADLs due to dyspnea, and now is terribly weak in general. She saw Dr. Coffman around 03/05/17 - he Rx Prednisone for 15 days and Levaquin x 10 days. Still, her SpO2 dropped with activity (walking 30 feet), even with 3L of oxygen in place. On 04/06/17 she was running in the 80s and on 04/07/17 she was running 70-80s. It took about 5-6 minutes for her oxygen sats to rise to 90%. She started noticing a little sternal burning with exertion. She has not had PND. Drove to [place] in mid-February (about a [address]). Occasional [id number] type of cough. Tends to have b/l swelling in her ankles but denies any worsening or unilateral edema. No fever, chills, congestion, sore throat, dizziness, abdominal pain, n/v/d/c, urinary changes, rashes. She does tend to bruise easily. She presented to [facility] [place] 04/12/17. Labs showed normal CBC, normal chemistries; trop was negative; d-dimer was negative. EKG showed sinus. CXR was unremarkable for CHF or pneumonia. Saturations initially were 83% on 3L. She received DuoNeb and Solumedrol. O2 was increased to 4L. ED MD also gave Levaquin. She was admitted to observation status under the hospitalist service. For complete details of the H&P refer to that document. Objective Vital signs: Temperature 98.9 F 04/16/17 07:00 Pulse Rate 89 04/16/17 08:00 Respiratory Rate 16 04/16/17 10:10 Blood Pressure 146/67 H 04/16/17 07:00 Pulse Oximetry 95 04/16/17 07:20 Oxygen Delivery Method Nasal Cannula Oxygen Flow Rate 3 Weight: 110.1 kg Hospital Course This is a general summary of the patient's hospital course. For more details refer to the complete medical record. Hospital course: 04/12/17 Admit, observation status, under the hospitalist service. COPD exacerbation; acute on chronic hypoxia -Solu-Medrol IV in ED - start Prednisone 60 mg tomorrow am -Levaquin 750 mg daily -High-resolution CT chest ordered -D-dimer normal -DuoNeb QID; acapella -resume home meds once they are reconciled Atypical Chest Pain -start PPI -echocardiogram -tele -trop was negative -lipids checked 01/27/17: Chol 150; trig 134, HDL 47, LDL 76, VLDL 27. DM2 -last A1c was 6.1% on 01/27/17 -monitor sugars - SSI if needed -continue oral agents (once reconciled) Weight gain/weakness -check TSH 04/13/17 COPD exacerbation with acute on chronic respiratory failure -wheezing is less and she has better air movement -will stop IV steroids and start Prednisone tomorrow -continue supportive care -still needing 3L of oxygen -suspect patient's lactic acidosis of 3.1 on admission was secondary to hypoxia rather severe sepsis. Lactate decreased to 1.5 on recheck. No source of infection identified, though she is being treated for COPD exacerbation. SIRS criteria include HR >90 and RR >20. Will check UA for completeness. -change status to inpatient d/t ongoing respiratory failure, lactic acidosis, pulmonary edema. LOS will exceed 2 midnights. Pulmonary edema with atypical chest pain (stable angina?) -again developed chest burning with exertion this morning -CT chest shows mild-moderate edema and triple vessel CAD -echo done, report pending -troponin negative -will consult Dr. Blevins for further recommendations -she is on a statin, ASA, BB, and ARB DM2 with hyperglycemia -BG elevated with steroids and cessation of Pioglitazone, which was held b/c of edema -could possibly increase metformin to 1000 mg BID; continue Glipizide -will increase SSI to high-dose corrective regimen Add MucinexLA and Claritin to help loosen secretions. PT/OT to see tomorrow for pulmonary debility. Dr Blevins recommend outpatient stress testing wound pulmonary status stabilized -does not feel cardiac disease playing a role in pt's current dyspnea. 04/13 - Cardiology Will need outpatient stress test to be done after current illness is resolved. No indication for further inpatient workup. Thank you for allowing us to participate in this patient's care. 04/14/17 Continue with levofloxacin for pulmonary coverage. Continue Prednisone and neb treatment to decrease pulmonary inflammation. PT/OT consulted and working with patient on her pulmonary debility. Encourage activities. Change Mucinex to Mucinex DM to help decrease cough. Encourage pt on acapella to help mobilize sputum. Recheck CXR in am. Monitor lab - WBC with elevation(likely steroid effect). Check BMP due to medication use. 04/14 - Cardiology No change in plan of care. Will schedule follow up with Dr. Blevins's office 2- 3 weeks after hospitalization for scheduling a stress test. 04/15/17 Repeat CXR showing no infiltrate or edema. Continue with levofloxacin for pulmonary coverage. Continue Prednisone and neb treatment to decrease pulmonary inflammation. Encourage continued acapella use to help loosen secretions. Wean O2 as able - likely pt needing continuous O2 at home. Encourage continured work with PT/OT to help her pulmonary debility. Encourage activities. With weight trending up, will give Bumex 1mg IV x1 today. Blood sugars stable with current medications and insulin sliding scale. A1c 6.9% . Monitor lab - WBC with elevation(likely steroid effect). Check BMP due to medication use. Possible discharge to home tomorrow if patient continues to make gains. Does have outpatient appointment scheduled with pulm on May 03 - pt to keep this appointment. 04/16/17 Can d/c levofloxacin - COPD exacerbation stablized and no definitive infiltrate noted. Has had 5 days of treatment. Continue Prednisone 40mg daily for 1 week - Can start slow taper by PCP in outpatient setting. RT to assess home O2 needs - suspect needing more than prior to admission. Continue Acapella QID for 1 week, then as needed for cough and congestion. Encourage pt to continue to walk and be active to help health status. Cardiology has started Norvasc 5mg daily to help BP. Continue in outpatient setting. Will discharge to home as pulmonary status has improved. F/U with Dr Amaya in 1 week for medical eval and to taper Predisone. Does have outpatient appointment scheduled with pulm on May 03 - to keep this appointment. Will f/u with Dr Blevins in 2-3 weeks for cardiac stress testing. See orders for details. Time spent with patient: Greater than 35 minutes DVT Prophylaxis: Lovenox GI Prophylaxis: Protonix Discharge Plan - Med Rec/Dispo Referrals/Follow Up: Ayo Blevins MD [Physician] - 05/12/17 10:00 am Marcos Coffman MD [Family Provider] - 1 Week (Eval pulm status - taper prednisone. ) Aristides Bower [Other] (Has apt scheduled already for pulmonary evaluation) Dorothy Instructions: COPD (Chronic Obstructive Pulmonary Disease) (GEN) Prescriptions: New PredniSONE [Deltasone] 40 mg PO WB #20 tablet Guaifenesin/Dm [Mucinex Dm] 1 tab PO BID tab.er.12h Metformin [Glucophage] 750 mg PO BIDWM tablet Tiotropium [place] [Spiriva] 1 cap ORAL INH DAILY cap.w.dev Amlodipine [Norvasc] 5 mg PO DAILY #30 tablet GlipiZIDE [Glucotrol] 5 mg PO 0730,1700 tablet Continue Lovastatin 40 mg PO DAILY #0 tab Losartan/Hydrochlorothiazide [Losartan-Hctz 100-25 mg Tab] 1 tab PO DAILY #0 tab Metoprolol Tartrate 50 mg PO BIDWM #0 tab Calcium 600 + D [Caltrate + D] 1 tab PO DAILY Aspirin [Bianca Chewable Aspirin] 81 mg PO DAILY Multivitamin [One Daily Multivitamin] 1 each PO DAILY Cinnamon Bark [Cinnamon] 500 mg PO DAILY Fluticasone/Salmeterol 250/50 [Advair Diskus] 1 puff INH BID Metformin HCl 1.5 tab PO BID #0 tab Albuterol Sulfate [Proair Respiclick] 90 mcg INH QID PRN PRN Reason: Wheezing Psyllium [Metamucil] 1 packet PO DAILY PRN PRN Reason: Constipation Discontinued Theophylline Anhydrous 300 mg PO DAILY Pioglitazone HCl [Pioglitazone HCl] 0.5 tab PO BID No Action glipiZIDE [Glipizide] 1 tab PO DAILY #0 tab Tiotropium [place] [Spiriva] 1 each INH DAILY Discharge Instructions/Outpatient Orders: Final Provider Discharge Instructions Location: Determined By Patient - Disposition 01 Discharged Home, Self-Care
[2017-04-16 15:33] VITALS: BP 162/68; PULSE 75; TEMP 98.3; O2SAT 90
== END 2017-04-16 16:05 | disposition home or self-care (01) | DRG 190 ==
LOC: MED 10:25 → ED 10:25 → MED 13:21
PROVIDERS: ADMIT Internal Medicine; ATTEND Hospitalist